=== PATIENT | female | born 1995 | race Caucasian/White ===

== ENCOUNTER 2018-02-16 09:28 | Emergency (ER) | payer OTHER, SELFPAY ==
[2018-02-16 09:28] VITALS: BP 125/63; PULSE 82; RESP 16; TEMP 36.9; O2SAT 99; BMI 32.5
--- NOTE | 2018-02-16 09:40 | CT_ITS ---
STUDY: CT ABDOMEN AND PELVIS WITHOUT CONTRAST REASON FOR EXAM: Female, 23 years old. Lower abdominal and pelvic pain since last night. RADIATION DOSAGE (If Supplied By Facility): CTDIvol = ( 12.97 ) mGy, DLP = ( 657.66 ) mGycm TECHNIQUE: Transaxial images were obtained from the dome of the diaphragm to the symphysis pubis without oral contrast, and without intravenous contrast. Sagittal and coronal images were reconstructed. Individualized dose optimization techniques were used for this CT. COMPARISON: None. FINDINGS: Minimal degree of increased markings at the lung bases suggestive of atelectasis. The visualized portions of the heart are within normal limits. There is a questionable 1.4 cm nodule in the lateral inferior aspect of the right breast. 6 mm nodule in the subcutaneous tissues of the right lateral inferior chest. Normal liver. Minimal amount of free fluid in the right hepatorenal space. Normal gallbladder and extrahepatic biliary system. There is mild splenomegaly. There is evidence of a small amount of the perisplenic fluid. If the patient has a history of trauma, perisplenic hematoma should be ruled out. Normal pancreas. Normal bilateral adrenal glands. Normal right kidney. Normal left kidney. Normal visualized stomach. Findings suggestive of a thickening of the terminal ileum with the edematous changes. There is no evidence of bowel obstruction. Increased markings in the peritoneal fat in the right upper quadrant adjacent to the hepatic flexure. This is a nonspecific finding. There are surgical clips in the region of the appendix consistent with a prior appendectomy. Normal abdominal aorta. Normal inferior vena cava. There is borderline retroperitoneal lymphadenopathy with enlarged nodes no greater than 10mm in the short axis diameter. Normal urinary bladder. There is a 4 cm x 3.8 cm cyst in the right adnexa. This also evidence of a 2.1 cm x 2.6 cm low density cystic nodule in the left adnexa. Normal abdominal wall. Normal osseous structures. CT/Abdomen/Pelvis without Cont IMPRESSION: Right ovarian cyst measuring 4 cm x 3.8 cm. 2.1 cm x 2.6 cm cyst in the left adnexa. Thickening of the terminal ileum with the findings suggestive of a mural thickening and edematous changes with mild degree of increased markings in the fat. Small amount of fluid is seen in the hepatorenal space. Mild splenomegaly. Perisplenic fluid possible perisplenic hematoma. Correlation with pelvic ultrasound is recommended. Electronically Signed: Tito Moe MD at 11:39 EDT Tel [phone], Service support ,
[2018-02-16 10:12] LABS: Absolute Lymphocyte Count 0.76 X10^3/ul (0.83-4.51); Basophil# 0.01 X10^3/uL; Basophil% 0.1 % (0-1); Eosinophil# 0.03 X10^3/uL; Eosinophils% 0.3 % (0-5); Hematocrit 37.2 % (37-47); Hemoglobin 12.3 g/dl (12.0-15.0); Lymphocyte # 0.76 X10^3/ul (4.0); Lymphocyte % 7.4 % (19-41); Mean Corp Hgb Conc 33.1 g/gl (32-36); Mean Corpuscular Hgb 28.1 pg (27.0-32.0); Mean Corpuscular Volume 85.1 fL (81-99); Mean Platelet Vol. 10.3 fl (6.2-12.0); Monocyte# 0.51 X10^3/uL; Neutrophil # 8.96 X10^3/uL (2.7-7.7); Platelet Count 268 K/mm3 (150-450); RBC Distribution Width CV 12.8 % (11.6-14.6); RBC Distribution Width SD 39.7 fl (35.1-43.9); Red Blood Count 4.37 M/mm3 (4.2-5.4); White Blood Count 10.3 K/mm3 (4.4-11.0)
[2018-02-16 10:14] LABS: POSITIVE COUNT NO; POSITIVE DIFFERENTIAL NO; POSITIVE MORPHOLOGY NO
[2018-02-16 10:26] LABS: AST(SGOT) 28 U/L (15-37); Alanine Aminotransfer ALT/SGPT 28 U/L (13-56); Albumin, Serum 3.8 g/dL (3.2-5.0); Alkaline Phosphatase 57 U/L (45-117); Anion Gap 7 (5-15); BUN 10 mg/dL (7-18); Bilirubin, Direct 0.08 mg/dL (0.00-0.30); Calcium,Total 8.5 mg/dL (8.5-10.1); Chloride 107 mmol/L (98-107); Creatinine, Serum 0.91 mg/dL (0.55-1.02); EST Glomerular Filtration Rate 81 mL/min (>60); Est Glom Filt Rate - Afr Amer 98 mL/min (>60); Estimated Creatinine Clearance 89.24 ml/min; Globulin 3.9 g/dL (2.2-4.2); Glucose 113 mg/dL (74-106); Lipase 82 U/L (73-393); Potassium 4.9 mmol/L (3.5-5.1); Protein, Total 7.7 g/dL (6.4-8.2); Sodium Level 138 mmol/L (136-145)
[2018-02-16 10:28] LABS: Pregnancy, Serum, hCG Quali. NEGATIVE Negative (0-9 Nonpreg)
[2018-02-16 10:51] LABS: Red Blood Cells-Urine 0 SEEN /hpf (0-5)
[2018-02-16 11:08] LABS: Color, Urine Yellow (Yellow); Glucose, Dipstick Normal (Normal); Ketone-Dipstick 5 mg/dl (Negative); Leukocyte Esterase-Dipstick 25 /ul (Negative); Nitrite-Dipstick Negative (Negative); Occult Blood-Urine Negative /ul (Negative); Protein-Dipstick 30 mg/dl (Negative); Urine Bilirubin Dipstick Negative (Negative); Urine Clarity Sl. Cloudy (Clear); Urine Urobilinogen 1 mg/dl (Normal)
[2018-02-16 11:21] LABS: Bacteria 1+ /hpf (None Seen); Mucous, Urine 1+ /hpf (<or=2+); Squamous Epithelial Cells - UA 5-10 SEEN /hpf (5-10); White Blood Cells 0-5 SEEN /hpf (0-5)
--- NOTE | 2018-02-16 11:38 | US_ITS ---
STUDY: ULTRASOUND OF THE FEMALE PELVIS - COMPLETE REASON FOR EXAM: Female, 23 years old. 2 with a history of vaginal pain and abdominal pain. Negative brain CT as. LMP: December 16, 2017. TECHNIQUE: Transabdominal and Transvaginal. The transvaginal examination was obtained for better assessment of the pelvis. TECHNICAL QUALITY: Adequate. COMPARISON: Comparison is made with prior CT scan of the abdomen and pelvis done earlier today. FINDINGS: The uterus is anteverted and is in a midline position. The uterus measures 7.4 cm x 4.2 cm x 3.4 cm. Normal uterine cervix. The endometrium measures 10 mm in thickness, and is hyperechoic. There is no demonstrated endometrial mass. There is no demonstrated myometrial mass. I.U.D. - The patient does not have an I.U.D. The right ovary is visualized. The right ovary is enlarged and measures 6 cm x 5.5 cm x 3.7 cm. There is a 2.6 cm x 3.4 cm x 2.1 cm cyst within it. There is no visualized right adnexal mass or complex lesion. There is normal arterial and normal venous vascularity. The left ovary is visualized. The left ovary measures 4.7 cm x 3.7 sided by 2.1 cm. There is a dominant follicle within the ovary measuring 1.2 cm x 1.7 cm x 0.9 cm. There is no visualized left adnexal mass or complex lesion. There is normal arterial and normal venous vascularity. Blood flow is seen in both ovaries. Large amount of echogenic free fluid is seen in the pelvis. The differential diagnosis to consider should include either pelvic inflammatory disease versus blood in the pelvis. US/Transvaginal Non- IMPRESSION: Bilateral ovarian cysts more pronounced on the right side. Normal arterial and venous flow of both ovaries. Large amount of echogenic fluid is seen in the pelvis. This may represent either pelvic inflammatory disease or blood within the pelvis. Clinical correlation is recommended. Electronically Signed: Tito Moe MD at 13:06 EDT Tel [phone], Service support ,
[2018-02-16] MEDS: Acetaminophen 325 MG Tablet 650 MG PO (13:01)
[2018-02-16 13:12] VITALS: BP 131/63; PULSE 84; RESP 18; O2SAT 99
[2018-02-16 15:21] LABS: Hematocrit 35.3 % (37-47); Hemoglobin 11.7 g/dl (12.0-15.0)
--- NOTE | 2018-02-16 15:33 | ED.VISSUMM ---
- ER Visit Summary Date of Service: 02/16/18 Chief Complaint: Pelvic pain History of Present Illness: The patient is a 23 F presenting with bilateral lower abdominal/pelvic pain that started suddenly at 10 PM last night during sexual intercourse. It was fairly sudden and severe at onset. She went to an outside hospital and had a negative urinalysis. The pain has been gradually improving since then but this morning she noticed slight upper abdominal pain as well that was not present last night. She denies vaginal bleeding or discharge but does state that the sexual intercourse was somewhat painful initially. She denies previous similar symptoms. Denies chance of . Denies known history of ovarian cysts or any other abdominal issues. Current severity of her pain is mild. Physical Examination: Vitals are within normal limits. She is not in significant distress. Her abdomen is soft without peritoneal signs. No flank percussion tenderness. No rash. A female nurse was present in the room and verbal informed consent was obtained for pelvic examination. Her cervix is closed. There is no discharge. No cervical motion tenderness or evidence of cervicitis noted cultures were sent. No adnexal fullness but there is slight tenderness bilaterally. Test Results: CBC revealed a hemoglobin of 12.3. Other labs are all within normal limits including liver function and lipase. Chemistries unremarkable. HCG negative. Urine does not appear infected. CT with IV contrast revealed fluid in the hepatorenal space and around the spleen. She has no history of trauma and does not recall any trauma at all over the past few months. There is evidence of ovarian cyst bilaterally and the fluid in the pelvis. I subsequently ordered a transvaginal ultrasound and there are bilateral ovarian cysts and either fluid or blood noted in the pelvis Emergency Department Course and Treatment: She had fairly sudden onset pain and has evidence of ovarian cyst on ultrasound with either blood or fluid in the pelvis. The differential diagnosis includes a ruptured ovarian cyst versus a hemorrhagic ovarian cyst. Her hemoglobin is normal and her pain started at 10 PM last night, which does argue somewhat against a hemorrhagic cyst. She had a few other abnormalities that I cannot fully explain on her CT scan including thickening of the terminal ileum and possible blood around the spleen/splenic hematoma. I discussed these at length with her, her , and her parents discussing the need for close follow-up to rule out other pathology. Her pain improved markedly here in her abdomen is completely soft and nontender on reexamination. I repeated a hemoglobin approximately 5 hours after the first 1 here and it is 11.7 but she did receive a small amount of fluid. If she had active significant bleeding, I would expect a more significant drop. I discussed these findings with Dr. Pauly López, with whom the patient is already established. I discussed the findings on the CT scan and the ultrasound with her as well as the laboratory results and her physical examination findings. She feels strongly that this is a ruptured ovarian cyst and that is what is causing the fluid in hepatorenal space and around her spleen. She believes that it is very unlikely that this is a hemorrhagic cyst since her hemoglobin is still 11.7 after this much time passing. Additionally, the patient is feeling much better and has a completely soft abdomen with no evidence of peritoneal findings. She feels comfortable with the patient being discharged home and seeing her in the office early next week. She did asked that I give her a short course of pain medication. I spoke at length with the patient's , her mother, and her father about the importance of coming back to the emergency department if she is any worse so that we can repeat her labs and possibly imaging to make sure that this is not a hemorrhagic cyst. I asked her to come back tomorrow morning if she has any concerns at all, or sooner if her pain increases or if she feels lightheaded, weak, or feels like her abdomen is becoming more distended because I cannot say with absolute certainty that this is not a hemorrhagic cyst. She understands this and her family will be with her watching her closely. She was discharged in stable condition. Treatment Plan: Follow up closely with Dr. López Disposition: Home stable condition Impression: Initial encounter pelvic pain, ruptured ovarian cyst, free fluid in the pelvis, incidental CT findings This note was generated with [employer] software. It may contain incorrect words, spelling, and punctuation that were not noted in review of the chart prior to signing ED Disposition - Plan for ED Patient: Disposition: Home or Assisted Living Chief Complaint: Abd Pain Instructions: ED Cyst Ovarian Prescriptions: Ondansetron HCl [Zofran] 4 mg PO Q6H PRN PRN 3 Days #10 tablet PRN Reason: Pain Oxycodone HCl/Acetaminophen [Percocet 5/325] 1 tablet PO Q6H PRN PRN 3 Days #12 tablet PRN Reason: Pain Referrals: Pauly López MD [STAFF PHYSICIAN] - As soon as possible
[2018-02-16 15:54] VITALS: BP 134/65; PULSE 93; RESP 18; O2SAT 96
== END 2018-02-16 15:55 | disposition home or self-care (01) ==
PROVIDERS: Emergency Provider Emergency Medicine
DX: N83.201 Unspecified ovarian cyst, right side (principal); R10.2 Pelvic and perineal pain
CPT/HCPCS: 74176; 76830; 80048; 80076; 81001; 83690; 84703; 85014; 85018; 85025; 87081; 87110; 87140; 87210; 99285; J7030; A4216

== ENCOUNTER → 2018-02-19 13:59 | Outpatient (CLI) | payer OTHER, SELFPAY ==
[2018-02-19 14:52] LABS: Absolute Lymphocyte Count 1.16 X10^3/ul (0.83-4.51); Absolute Neutrophil Count 4.4 X10^3/uL (2.0-7.7); Basophil# 0.02 X10^3/uL; Basophil% 0.3 % (0-1); Eosinophil# 0.16 X10^3/uL; Eosinophils% 2.6 % (0-5); Hematocrit 33.6 % (37-47); Hemoglobin 11.3 g/dl (12.0-15.0); Lymphocyte # 1.16 X10^3/ul (4.0); Lymphocyte % 18.6 % (19-41); Mean Corp Hgb Conc 33.6 g/gl (32-36); Mean Corpuscular Hgb 28.7 pg (27.0-32.0); Mean Corpuscular Volume 85.3 fL (81-99); Mean Platelet Vol. 10.5 fl (6.2-12.0); Neutrophil # 4.35 X10^3/uL (2.7-7.7); POSITIVE COUNT NO; POSITIVE DIFFERENTIAL NO; POSITIVE MORPHOLOGY NO; Platelet Count 242 K/mm3 (150-450); RBC Distribution Width CV 12.4 % (11.6-14.6); RBC Distribution Width SD 37.4 fl (35.1-43.9); Red Blood Count 3.94 M/mm3 (4.2-5.4); White Blood Count 6.2 K/mm3 (4.4-11.0)
[2018-02-22 03:07] LABS: DHEA Sulfate 359.1 ug/dL (110.0-431.7)
[2018-02-23 08:16] LABS: Testosterone Free 0.9 pg/mL (0.0-4.2)
== END ==
PROVIDERS: Visit Provider Obstetrics & Gynecology
DX: N92.6 Irregular menstruation, unspecified (principal); N83.201 Unspecified ovarian cyst, right side; N83.202 Unspecified ovarian cyst, left side
CPT/HCPCS: 36415; 82627; 84402; 85025; 82626

== ENCOUNTER → 2018-03-23 13:28 | Outpatient (CLI) | payer OTHER, SELFPAY ==
--- NOTE | 2018-03-23 13:30 | BI_ITS ---
MAMMOGRAPHY - BILATERAL DIAGNOSTIC REASON FOR EXAM: Female, 23 years old. Nodular density seen on a CAT scan. PERTINENT HISTORY: Non-contributory. TECHNIQUE: Digital bilateral breast armin (3D mammographic acquisition) in the CC and MLO projections. 2-D mediolateral oblique (MLO) and craniocaudad (CC) views of both breasts were obtained. CAD: Full Field Digital Mammography with Computer Added Detection was performed. COMPARISON: None. Baseline examination. FINDINGS: Breast Composition: The breasts are heterogeneously dense, which may obscure small masses. There is a 1.5 cm x 1.7 cm well-defined nodular density in the upper lateral aspect of the right breast. Correlation with ultrasound is recommended. No other significant abnormalities are identified. BI/DIAG MAMM W/CAD, BILAT IMPRESSION: 1.5 cm x 1.7 cm well-defined nodular density in the upper outer aspect of the right breast as described. Correlation with ultrasound is recommended. ASSESSMENT CATEGORY: BIRADS Category 0: Incomplete. Need additional imaging evaluation. A letter regarding these results will be sent to the patient by the facility within 30 days. Approximately 10% of breast cancers are not detected by mammography. A normal mammogram should not delay biopsy of a clinically suspicious abnormality. Electronically Signed: Tito Moe MD at 15:14 EDT Tel [phone], Service support ,
--- NOTE | 2018-03-23 13:30 | US_ITS ---
STUDY: ULTRASOUND BREAST - RIGHT REASON FOR EXAM: Female, 23 years old. Right breast nodule. TECHNIQUE: Axial and longitudinal images of the RIGHT breast were performed with a high resolution ultrasound transducer. COMPARISON: Comparison is made with prior mammogram done earlier today. FINDINGS: RIGHT Breast: There is a lesion in the upper Outer quadrant. The lesion measures 1.7 cm x 1.0 cm x 0.7 cm in size. Clock notation: 10 o'clock position. Distance from nipple: 3.0 cm. Posterior Enhancement: None Posterior Shadowing: None Margins: Well-defined Echogenicity: Hypoechoic. Compression effect on Shape: None US/Breast Limited Unilateral IMPRESSION: 1.7 cm x 1 cm x 0.7 cm well-defined hypoechoic solid nodule at the 10:00 position breast at 3 cm from the nipple. This corresponds to the mammographic findings. This most likely represents a fibroadenoma. A biopsy is recommended for further evaluation. ASSESSMENT CATEGORY: BIRADS Category 4: Suspicious - Biopsy Should Be Considered. A letter regarding these results will be sent to the patient by the facility within 30 days. Electronically Signed: Tito Moe MD at 15:16 EDT Tel [phone], Service support ,
== END ==
PROVIDERS: Referring Provider Obstetrics & Gynecology; Visit Provider Obstetrics & Gynecology
DX: N63.10 Unspecified lump in the right breast, unspecified quadrant (principal)
CPT/HCPCS: 76642; 77062; 77066; G0279

== ENCOUNTER → 2018-04-13 16:47 | Outpatient (CLI) | payer OTHER, SELFPAY ==
--- NOTE | 2018-04-13 | BRBX_PTH ---
PATIENT: CHANTELLE JACKSON LOC: [facility] U#:[id number] AGE/SX: 30/F ROOM: RE04/13/[address]: Dr. Prasad Staley MD : 1995 BED: DIS: SPEC #: [id number] RECD: 04/13/18 16:38 STATUS: HEIDI DINORA #: [id number] [place]: 04/13/18 00:[address]: Prasad Staley DEPT: SURGICAL PATHOLOGY RECD BY: Shmuel Freeman ENTERED: 04/16/18 09:50 SP TYPE: BREAST BX OTHR DR: No Primary Care Phys Tissues: Right breast, NOS Procedures: Surgery Specimen Level IV HEADER OPERATION: Right breast biopsy PRE-OP DIAGNOSIS: Right breast mass TISSUE SUBMITTED: Right breast tissue ISCHEMIC TIME: 1 second FIXATION TIME: 77 hours MICROSCOPIC DIAGNOSIS Right breast mass, core biopsy: Fibroadenoma. Negative for atypia or malignancy. SJ:yao 04/17/18 MICROSCOPIC DESCRIPTION Slides are reviewed. GROSS DESCRIPTION Received in fixative is one container labeled with the patient's name and designated right breast. The specimen consists of multiple elongated fragments of miller-yellow fibroadipose tissue that in aggregate measure 2.5 x 1 x 0.1 cm. The entire specimen is submitted in one cassette. / SJ:rg 04/16/18 TC:1 CPT: 67191
[2018-04-13 13:22] VITALS: BMI 31.6
== END ==
PROVIDERS: Referring Provider Surgery; Visit Provider Surgery
DX: N63.10 Unspecified lump in the right breast, unspecified quadrant (principal)
CPT/HCPCS: 88305

== ENCOUNTER → 2019-06-26 08:25 | Outpatient (CLI) | payer BC, SELFPAY ==
[2019-06-26 08:12] VITALS: BMI 31.6
[2019-06-26 16:43] LABS: Xtra Tube EP Lab EXTRA TUBE
== END ==
PROVIDERS: Referring Provider Obstetrics & Gynecology; Visit Provider Obstetrics & Gynecology
DX: Z34.90 Encounter for supervision of normal pregnancy, unspecified, unspecified trimester (principal)
CPT/HCPCS: 36415; 86850; 86900; 86901

== ENCOUNTER → 2019-07-08 13:51 | Outpatient (CLI) | payer BC, SELFPAY ==
[2019-07-08 11:43] VITALS: BMI 31.6
[2019-07-08 15:19] LABS: Amphetamine Urine VISTA NEGATIVE (<1000 ng/mL); Barbiturate Urine VISTA NEGATIVE (< 200 ng/mL); Benzodiazepine Urine VISTA NEGATIVE (< 200 ng/mL); Cocaine Urine VISTA NEGATIVE (< 300 ng/mL); Ecstacy Urine VISTA NEGATIVE (< 500 ng/mL); Methadone Urine VISTA NEGATIVE (< 300 ng/mL); PCP Urine VISTA NEGATIVE (< 25 ng/mL); THC Urine VISTA NEGATIVE (< 50 ng/mL); Vista UDS pH Range 6
[2019-07-08 15:58] LABS: Chlamydia Trachomatis by PCR Negative (Negative); Neisserai gonorrhoeae by PCR Negative (Negative); Probe Check PASS; Sample Adequacy Control PASS; Specimen Processing Control PASS
[2019-07-11 15:44] LABS: HPV Reflexed? NOT INDICATED
== END ==
PROVIDERS: Referring Provider Obstetrics & Gynecology; Visit Provider Obstetrics & Gynecology
DX: Z12.4 Encounter for screening for malignant neoplasm of cervix (principal); Z34.90 Encounter for supervision of normal pregnancy, unspecified, unspecified trimester; N92.6 Irregular menstruation, unspecified
CPT/HCPCS: 80307; 87086; 87088; 87491; 87591; 88175; G0145

== ENCOUNTER → 2019-07-22 09:49 | Outpatient (CLI) | payer BC, SELFPAY ==
[2019-07-08 11:43] VITALS: BMI 31.6
[2019-07-22 10:32] LABS: Absolute Lymphocyte Count 1.29 X10^3/uL (0.83-4.51); Absolute Neutrophil Count 6.1 X10^3/uL (2.0-7.7); Basophil# 0.02 X10^3/uL; Basophil% 0.2 % (0-1); Eosinophil# 0.15 X10^3/uL; Eosinophils% 1.8 % (0-5); Hematocrit 40.6 % (37-47); Hemoglobin 13.6 g/dL (12.0-15.0); Lymphocyte # 1.29 X10^3/ul (4.0); Lymphocyte % 15.8 % (19-41); Mean Corp Hgb Conc 33.5 g/dL (32-36); Mean Corpuscular Hgb 28.6 pg (27.0-32.0); Mean Corpuscular Volume 85.3 fL (81-99); Mean Platelet Vol. 10.2 fl (6.2-12.0); Monocyte# 0.55 X10^3/uL; Monocyte% 6.7 % (0-10); NRBC Flagged by Analyzer 0 % (0-5); Neutrophil # 6.12 X10^3/uL (2.7-7.7); Platelet Count 249 K/mm3 (150-450); RBC Distribution Width CV 12.1 % (11.6-14.6); RBC Distribution Width SD 37.4 fl (35.1-43.9); Red Blood Count 4.76 M/mm3 (4.2-5.4); White Blood Count 8.2 K/mm3 (4.4-11.0)
[2019-07-22 11:02] LABS: NATERA MAILED SPECIMEN
[2019-07-22 12:01] LABS: HIV - WCH Non-Reactive (Nonreactive); Hepatitis B Surface Antigen Non-Reactive (Nonreactive); Hepatitis C Antibody Non-Reactive (Nonreactive); Rubella IgG > 500.0 IU/mL
[2019-07-25 01:05] LABS: Rapid Plasmin Reagin (RPR) NONREACTIVE (NONREACTIVE)
== END ==
PROVIDERS: Referring Provider Obstetrics & Gynecology; Visit Provider Obstetrics & Gynecology
DX: Z34.81 Encounter for supervision of other normal pregnancy, first trimester (principal); Z31.430 Encounter of female for testing for genetic disease carrier status for procreative management
CPT/HCPCS: 36415; 85025; 86592; 86703; 86762; 86803; 86850; 86900; 86901; 87340

== ENCOUNTER → 2019-07-29 13:25 | Outpatient (CLI) | payer BC, SELFPAY ==
[2019-07-08 11:43] VITALS: BMI 31.6
[2019-07-29] MEDS: Dextrose 5%-Lactated Ringers 1,000 ML 999 ML IV (14:00)
[2019-07-29 14:02] VITALS: BP 129/75; PULSE 86; RESP 16; TEMP 36; O2SAT 100; BMI 31.1
[2019-07-29] MEDS: Ondansetron 4 MG/2 ML Vial IV (14:09)
== END ==
PROVIDERS: Referring Provider Obstetrics & Gynecology; Visit Provider Obstetrics & Gynecology
DX: E86.0 Dehydration (principal)
CPT/HCPCS: 96361; 96374; 96375; A4216; J2405

== ENCOUNTER → 2019-11-15 11:17 | Outpatient (CLI) | payer BC, SELFPAY ==
[2019-11-15 10:57] VITALS: BMI 31.1
[2019-11-15 12:07] LABS: Absolute Lymphocyte Count 1.08 X10^3/uL (0.83-4.51); Absolute Neutrophil Count 7.4 X10^3/uL (2.0-7.7); Basophil# 0.03 X10^3/uL; Basophil% 0.3 % (0-1); Eosinophils% 1.1 % (0-5); Hematocrit 34.8 % (37-47); Hemoglobin 11.7 g/dL (12.0-15.0); Lymphocyte # 1.08 X10^3/ul (4.0); Lymphocyte % 11.6 % (19-41); Mean Corp Hgb Conc 33.6 g/dL (32-36); Mean Corpuscular Hgb 29.8 pg (27.0-32.0); Mean Corpuscular Volume 88.8 fL (81-99); Mean Platelet Vol. 11.2 fl (6.2-12.0); Monocyte# 0.59 X10^3/uL; Monocyte% 6.3 % (0-10); NRBC Flagged by Analyzer 0 % (0-5); Neutrophil # 7.44 X10^3/uL (2.7-7.7); Neutrophil % 79.5 % (47-70); Platelet Count 218 K/mm3 (150-450); RBC Distribution Width CV 12.9 % (11.6-14.6); RBC Distribution Width SD 41.8 fl (35.1-43.9); Red Blood Count 3.92 M/mm3 (4.2-5.4); White Blood Count 9.4 K/mm3 (4.4-11.0)
[2019-11-15 12:15] LABS: Glucose Challenge Gest 1H 50g 88 mg/dL (70-140)
== END ==
PROVIDERS: Referring Provider Obstetrics & Gynecology; Visit Provider Obstetrics & Gynecology
DX: Z34.02 Encounter for supervision of normal first pregnancy, second trimester (principal)
CPT/HCPCS: 36415; 82950; 85025

== ENCOUNTER → 2019-12-10 11:13 | Outpatient (CLI) | payer BC, SELFPAY ==
[2019-12-10 10:39] VITALS: BMI 31.1
[2019-12-10 11:26] LABS: Absolute Neutrophil Count 7.7 X10^3/uL (2.0-7.7); Basophil# 0.05 X10^3/uL; Basophil% 0.5 % (0-1); Eosinophil# 0.09 X10^3/uL; Eosinophils% 0.9 % (0-5); Hematocrit 36.1 % (37-47); Lymphocyte % 11.2 % (19-41); Mean Corp Hgb Conc 33.2 g/dL (32-36); Mean Corpuscular Hgb 29.7 pg (27.0-32.0); Mean Corpuscular Volume 89.4 fL (81-99); Mean Platelet Vol. 10.9 fl (6.2-12.0); Monocyte% 7.1 % (0-10); NRBC Flagged by Analyzer 0 % (0-5); Neutrophil # 7.71 X10^3/uL (2.7-7.7); Neutrophil % 78.2 % (47-70); Platelet Count 211 K/mm3 (150-450); RBC Distribution Width CV 12.8 % (11.6-14.6); RBC Distribution Width SD 41.5 fl (35.1-43.9); Red Blood Count 4.04 M/mm3 (4.2-5.4); White Blood Count 9.9 K/mm3 (4.4-11.0)
[2019-12-10 11:48] LABS: ALB/GLOB Ratio 0.6 RATIO (0.9-2.4); AST(SGOT) 13 U/L (15-37); Alanine Aminotransfer ALT/SGPT 22 U/L (13-56); Albumin, Serum 2.6 g/dL (3.2-5.0); Alkaline Phosphatase 78 U/L (45-117); Anion Gap 7 (5-15); BUN 5 mg/dL (7-18); BUN/Creat Ratio 8.1 RATIO (10-20); Calcium,Total 8.1 mg/dL (8.5-10.1); Chloride 108 mmol/L (98-107); Creatinine, Serum 0.62 mg/dL (0.55-1.02); EST Glomerular Filtration Rate 124 mL/min (>60); Est Glom Filt Rate - Afr Amer 150 mL/min (>60); Glucose 107 mg/dL (74-106); Potassium 3.8 mmol/L (3.5-5.1); Protein, Total 6.6 g/dL (6.4-8.2); Sodium Level 137 mmol/L (136-145)
--- NOTE | 2019-12-10 16:09 | US_ITS ---
STUDY: SECOND AND THIRD TRIMESTER OBSTETRICAL ULTRASOUND REASON FOR EXAM: Female, 24 years old ABD PAIN- 5 HOURS STRAIGHT TODAY LMP: TECHNIQUE: Transabdominal TECHNICAL QUALITY: Adequate. PRIOR ULTRASOUND: None. FINDINGS: There is a single intrauterine fetus. The fetus is in a cephalic presentation. There is demonstrated cardiac activity with a heart rate of 129 bpm. There is a normal amniotic fluid volume. The largest amniotic fluid pocket measures 5.1 x 4.1 cm. The amniotic fluid index (STEPHON) is 10.9 cm. The placenta is posterior and fundal There are Grade 2 placental changes. The cervix measures 3.5 cm in length. The bilateral adnexal regions are normal. BIOMETRY: BPD: 8.19 cm: 33 weeks, 0 days HC: 30.49 cm: 34 weeks, 0 days AC: 26.8 cm: 31 weeks, 0 days FL: 6.02 cm: 31 weeks, 3 days CI: 0.79 FL/BPD: 0.74 FL/HC: FL/AC: 0.22 HC/AC: 1.14 age by current US: 32 weeks, 3 days. COLIN by current US: February 01, 2020. Estimated weight: 1777 grams, +/- 259 grams, 45 %. age by prior US: weeks, days. COLIN by prior US: . Age by LMP: 31 weeks, 2 days. COLIN by LMP: February 09, 2020. ANATOMY: Not studied at this time US/OB Limited With Biometrics IMPRESSION: Viable intrauterine gestation approximately 32-33 weeks gestational age. No significant abnormalities. Electronically Signed: Timmy Tejeda MD at 17:12 EDT , Service support ,
[2019-12-10 16:31] LABS: Protein, Urine (Random) 29.4 mg/dL (<11.9); Protein:Creat Ratio 232 mg/g CRE (0-200)
== END ==
PROVIDERS: Referring Provider Nurse Practitioner Women's Health; Visit Provider Nurse Practitioner Women's Health
DX: N39.0 Urinary tract infection, site not specified (principal); O26.899 Other specified pregnancy related conditions, unspecified trimester; R10.9 Unspecified abdominal pain
CPT/HCPCS: 36415; 76816; 80053; 82570; 84156; 85025; 87086; 87088

== ENCOUNTER → 2020-01-13 16:58 | Outpatient (CLI) | payer BC, SELFPAY ==
[2020-01-13 11:04] VITALS: BMI 33.9
== END ==
PROVIDERS: Referring Provider Obstetrics & Gynecology; Visit Provider Obstetrics & Gynecology
DX: Z34.90 Encounter for supervision of normal pregnancy, unspecified, unspecified trimester (principal)
CPT/HCPCS: 87081

== ENCOUNTER → 2020-02-04 11:25 | Outpatient (CLI) | payer BC, SELFPAY ==
[2020-01-27 10:53] VITALS: BMI 31.1
--- NOTE | 2020-02-04 11:29 | US_ITS ---
STUDY: SECOND AND THIRD TRIMESTER OBSTETRICAL ULTRASOUND REASON FOR EXAM: Female, 25 years old growth LMP: 05/05/2019. TECHNIQUE: Transabdominal TECHNICAL QUALITY: Adequate. PRIOR ULTRASOUND: Comparison is made with prior examination dated 12/10/2019. FINDINGS: There is a single intrauterine fetus. The fetus is in a cephalic presentation. There is demonstrated cardiac activity with a heart rate of 138 bpm. There is a normal amniotic fluid volume. The largest amniotic fluid pocket measures 3.5 cm. The amniotic fluid index (STEPHON) is 11.3 cm. The placenta is There are Grade 3 placental changes. The cervix measurement was not obtained due to the head positioning.. The adnexal regions are not visualized. BIOMETRY: BPD: 9.3 cm: 38 weeks, 0 days HC: 34.3 cm: 39 weeks, 5 days AC: 36.9 cm: 40 weeks, 6 days FL: 7.44 cm: 38 weeks, 1 days CI: 83% FL/BPD: 80% FL/HC: FL/AC: 20% HC/AC: 0.93 age by current US: 39 weeks, 2 days. COLIN by current US: 02/09/2020. Estimated weight: 3872 grams, +/- 565 grams, 81 %. age by prior US: 40 weeks, 3 days. COLIN by prior US: 02/01/2020. Age by LMP: 39 weeks, 2 days. COLIN by LMP: 02/09/2020. US/OB Limited With Biometrics IMPRESSION: Single live intrauterine gestation with a mean gestational age of 40 weeks and 3 days. The measurements obtained today fall within the normal expected range. Electronically Signed: Tito Moe, at 13:23 EDT , Service support ,
== END ==
PROVIDERS: Referring Provider Obstetrics & Gynecology; Visit Provider Obstetrics & Gynecology
DX: O26.843 Uterine size-date discrepancy, third trimester (principal); Z3A.40 40 weeks gestation of pregnancy
CPT/HCPCS: 76816

== ENCOUNTER → 2020-02-05 10:56 | Outpatient (CLI) | payer BC, SELFPAY ==
[2020-01-27 10:53] VITALS: BMI 31.1
== END ==
PROVIDERS: Referring Provider Obstetrics & Gynecology; Visit Provider Obstetrics & Gynecology
DX: Z11.59 Encounter for screening for other viral diseases (principal)
CPT/HCPCS: 87635; C9803; U0003

== ENCOUNTER 2020-02-14 19:00 | Inpatient (IN) | payer BC, SELFPAY ==
[2020-01-27 10:53] VITALS: BMI 31.1
[2020-02-14] VITALS (8 sets, daily range): BP systolic 112–118; BP diastolic 70–72; PULSE 88–97; TEMP 35.9–36.3; O2SAT 97–98; BMI 31.1; BMI 34.8
--- NOTE | 2020-02-14 19:46 | PCM.HPOB.BLA ---
- Problem List (1) Encounter for induction of labor Status: Acute (2) Family history of genetic disease Status: Acute Comment: FOB positive for two variants in the gene associated with Galactosemia; MOB neg for 14/14 diseases. (3) Family history of multiple sclerosis Status: Acute Comment: father and sister. She is having jitteriness is legs-getting opinion form their neurologist (4) Status: Acute Qualifiers: Comment: nipt carrier screening low risk. declines ntd screening. anatomy nl (5) Supervision of normal Status: Acute Qualifiers: Comment: PRR COLIN 02/09/20, boy Damir Ranjit History and Physical Date of Admission: 02/14/20 Intake Vital Signs 02/14/20 Height 5 ft 6 in 02/14/20 Weight: 219 lb 6 oz 02/14/20 BMI 35.4 02/14/20 BP 124/80 H Intake Visit Reasons: OB VISIT Radiological Defense Officer Required: No Is patient in pain?: No Allergies morphine Allergy (Verified 02/14/20 10:59) Hives Medications vitamin#30 30 mg iron-10 mg iron-folic acid 1 mg-omg3 capsule cap PO 06/26/19 [History Confirmed 02/14/20] promethazine 12.5 mg tablet 12.5 mg PO Q6H PRN #60 tab 07/24/19 [Rx Confirmed 02/14/20] ondansetron 4 mg disintegrating tablet See Rx Instructions .ROUTE .COMPLEX #60 tab 01/06/20 [Rx Confirmed 02/14/20] betamethasone dipropionate 0.05 % lotion 1 applic TOPICAL BID PRN #60 ml 01/16/20 [Rx Confirmed 02/14/20] Last Menstral Period: 05/05/19 Zika: Zika virus screening: Negative : No PFSH PFSH Medical History Abnormal ultrasound (Acute) Asthma (Acute) Surgical History H/O breast biopsy (Acute) History of appendectomy (Acute) Social History (Updated 02/14/20 @ 13:[address] Janell Acevedo MD) Smoking Status: Never smoker alcohol intake: never substance use type: does not use caffeine: Yes what type of physical activity do you participate in: none seatbelt use: always do you feel safe at home: Yes additional social history: Aminata Tsai Patient works at [employer] in [place] Pregancy History 1 Elective abortions Hx Para Spontaneous abortions Hx # Term Pregnancies Ectopic pregnancies Hx # Pregnancies Multiple births # of living children HPI OB VISIT : Details: CHANTELLE JACKSON is a 25 year old who presents for routine OB visit. OB Visit COLIN Calculator Estimated Delivery Date Method Current WG Current Estimate 02/09/20 LMP (Certain) 40w 5d Expected Delivery Route/Plan Labor Preferences- declined classes labor support person: Ranjit pain management options preferred: epidural cut cord/dad catch: no : yes PP control planned: NFP discussed possible routes of delivery and associated risks: discussed possible delivery modalities and possible indications for each including R/B/A of , VAVD, and CS. questions answered. special requests: denies Specific Issue/Plans flu vaccine: given tdap vaccine: given rhogam: na LARC form signed: yes movement and labor precautions reviewed. Problem list reviewed and updated with the most current plan of care details and appropriate orders placed. Relevant counseling for the gestational age provided. Continue routine care and follow up unless otherwise noted in visit notes/problem list details Initial Weight: 198 lb Date EGA Weight BP Urine Prot Glucose FHR FuHt Pres Dilation Effaced St Visit Note 08/09/19 13w 5d 199 lb (+16 oz) 104/76 Negative Negative 150 SM- no vb cramping 10/04/19 21w 5d 199 lb (+16 oz) 122/84 Negative Negative 145 sM_ no vb lof good fm no regular ctx 11/01/19 25w 5d 200 lb (+2 lb) 120/78 Negative Negative 149 25 MH-NO VB, LOF. Good FM. Sister and dad with MS:having symptoms for jitteriness, shakiness of legs. Will seek opionion from their specialist. 11/15/19 27w 5d 200 lb (+2 lb) 120/68 150 28 Sm- no vb lof good fm no regular ctx cbc gct tdap discussed CB classes and BF 12/02/19 30w 1d 200 lb (+2 lb) 128/76 Negative Negative 140 30 SM- no vb lof good fm nor egular ctx 12/10/19 31w 2d 208 lb 4 oz (+10 lb 4 oz) 140/80 Trace Negative 131 MH-work in for pain to right of umbilicus starting about 2 hours ago. Good FM. NO VB, LOF. UA negative. Upon exam:tender without mass just right of umbilicus. US planned today. MH-work in for pain to right of umbilicus starting about 2 hours ago. Good FM. NO VB, LOF. UA negative. Upon exam:tender without mass just right of umbilicus. US planned today. Pre E labs 12/30/19 34w 1d 206 lb (+8 lb) 122/68 Trace Negative 142 34 MH-doing well. No VB, LOF. Good FM. Some pain over tailbone/Dossi 01/13/20 36w 1d 210 lb 2 oz (+12 lb 2 oz) 110/82 Negative 1000 g/dL 140 36 Cephalic SM- no vb lof good fm no regular ctx. gbs today 01/16/20 36w 4d 214 lb 2 oz (+16 lb 2 oz) 120/70 Trace Negative 150 36 MH-work in itching rash abdomen; erythema, rash in striae. PUPPS. steroid cream Rx. Benadryl qhs. MH-work in itching rash abdomen; erythema, rash in striae. PUPPS. steroid cream Rx. Benadryl qhs. Good FM. NO VB, LOF 01/22/20 37w 3d 212 lb (+14 lb) 122/76 Negative Negative 150 37 Cephalic 0.5 40 -3 GP - still having discomfort from PUPPs. Offered PO steroids, but declines. Rec antihistamines and steroid cream. No LOF, VB, DFM, Ctx. 01/27/20 38w 1d 215 lb (+17 lb) 124/84 Negative Negative 145 38 Cephalic 0.5 Sm- no vb lof good fm no regular ctx order growth us 02/07/20 39w 5d 215 lb 8 oz (+17 lb 8 oz) 126/72 Trace Negative 140 40 Cephalic 1 50 -1 SM- no vb lof good fm no regular ctx 02/14/20 40w 5d 219 lb 6 oz (+21 lb 6 oz) 124/80 Trace Negative 140 41 Cephalic 1 50 -2 GP - no LOF, VB, DFM regular ctx. Discussed IOL tonight. ACOG First Trimester First Trimester: Discussed Diagnostics Diagnostics Diagnostics Glucose 1 Hr 50 gm 88 mg/dL (70-140) 11/15/19 Hgb 12.0 g/dL (12.0-15.0) 12/10/19 Hct 36.1 % (37-47) L 12/10/19 Details: HIV: Urine Culture: Sequential Screen: NIPT Screen: ROS Const Reports fatigue, Denies fever(s), Denies increased appetite, Denies weight gain Card Denies chest pain, Denies shortness of breath Resp Denies shortness of breath GI Denies constipation, Reports heartburn, Reports nausea, Reports vomiting Denies abnormal vaginal bleeding, Denies painful urination, Denies nipple discharge, Denies pelvic pain, Denies vaginal discharge, Denies vaginal odor, Denies vaginal itching Skin/Breast Reports breast pain, Reports breast swelling, Denies nipple discharge Psych Denies anxiety, Denies depression Endo Reports fatigue Exam Const General: cooperative, healthy appearing, comfortable, no acute distress, well developed, well groomed Nutritional Appearance: average body habitus, well nourished Orientation: alert, awake, oriented x3 [facility] Head: normal to inspection, normocephalic, atraumatic Eyes Pupils: PERRL, accommodation normal Resp Effort & Inspection: normal respiratory effort, able to speak in complete sentences, symmetric chest movement Cardio Rate: regular rate GI Palpation: soft, no guarding, no masses, nontender Skin General: no rashes or lesions noted, elasticity normal, turgor normal Neuro General: alert, awake, oriented x3 Cranial Nerves: CN's II-XI intact bilaterally, sense of smell intact, PERRL, accommodation normal, EOM intact bilaterally Speech: speech normal Gait: normal gait Psych Appearance: grossly normal, well kempt Mental Status: mental status grossly normal Mood: congruent mood Affect: normal affect Speech and Movement: speech and movement normal Attitude: cooperative Thought Process: normal Thought Content: normal Judgment: judgment good Results POC Urinalysis 2 Dip (Clinic) Office Urine Glucose Negative Last Edit by Mounika Perea on 02/14/20 11:15 Office Urine Protein Trace Last Edit by Mounika Perea on 02/14/20 11:15 Office Urine Protein previously reported as Negative Mounika Perea 02/14/20 11:15 Assessment & Plan Problems 1. Family history of multiple sclerosis Z82.0 father and sister. She is having jitteriness is legs-getting opinion form their neurologist 2. Family history of genetic disease Z84.89 FOB positive for two variants in the gene associated with Galactosemia; MOB neg for 14/14 diseases. 3. Supervision of normal Z34.90 PRR COLIN 02/09/20, boy Damir Ranjit 4. 40 weeks gestation of Z3A.40 nipt carrier screening low risk. declines ntd screening. anatomy nl Plan Patient for induction for maternal obesity and post dates tonight at 1900. Plan for rowley bulb with cytotec. Pain management: plans epidural. GBS negative. Blood type O+ Rubella immune Covid test negative Management of any complications: none Orders Orders: POC Urinalysis 2 Dip (Clinic) Today Coding Level of Care Code OB Routine Diagnoses Family history of multiple sclerosis Z82.0 Family history of genetic disease Z84.89 Supervision of normal Z34.90 40 weeks gestation of Z3A.40 ??Weeks of gestation: 40 weeks UPDATE- I have seen the patient and performed any clinically relevant updates to the history and physical exam. Janell Acevedo MD
[2020-02-14] MEDS: Lactated Ringers 1,000 ML 50 ML IV (20:10)
[2020-02-14 20:30] LABS: Absolute Lymphocyte Count 1.27 X10^3/uL (0.83-4.51); Absolute Neutrophil Count 9.5 X10^3/uL (2.0-7.7); Basophil# 0.06 X10^3/uL; Basophil% 0.5 % (0-1); Eosinophil# 0.11 X10^3/uL; Eosinophils% 0.9 % (0-5); Hematocrit 38.1 % (37-47); Hemoglobin 12.8 g/dL (12.0-15.0); Lymphocyte # 1.27 X10^3/ul (4.0); Lymphocyte % 10.5 % (19-41); Mean Corp Hgb Conc 33.6 g/dL (32-36); Mean Corpuscular Volume 86.4 fL (81-99); Mean Platelet Vol. 11.4 fl (6.2-12.0); Monocyte# 0.98 X10^3/uL; Monocyte% 8.1 % (0-10); NRBC Flagged by Analyzer 0 % (0-5); Neutrophil # 9.46 X10^3/uL (2.7-7.7); Neutrophil % 77.8 % (47-70); Platelet Count 222 K/mm3 (150-450); RBC Distribution Width CV 13.1 % (11.6-14.6); RBC Distribution Width SD 40.3 fl (35.1-43.9); Red Blood Count 4.41 M/mm3 (4.2-5.4); White Blood Count 12.2 K/mm3 (4.4-11.0)
[2020-02-14] MEDS: 0.9% Normal Saline Single 100 ML IV.SOLN. IY (20:41)
[2020-02-14] MEDS: miSOPROStol 25 MCG TABLET VAGINAL (20:46)
[2020-02-14] MEDS: 0.9% Saline Lock 10 ML Syringe IV ×3 (21:23→23:18)
[2020-02-14] MEDS: Ondansetron 4 MG/2 ML Vial IV (22:53)
[2020-02-14] MEDS: fentaNYL 100 MCG/2 ML Ampul IV (23:18)
[2020-02-15] VITALS (62 sets, daily range): BP systolic 89–130; BP diastolic 44–81; PULSE 82–109; TEMP 36.2–38.1; O2SAT 89–99
[2020-02-15] MEDS: miSOPROStol 25 MCG TABLET VAGINAL (01:10)
[2020-02-15] MEDS: fentaNYL 100 MCG/2 ML Ampul IV (01:34)
[2020-02-15] MEDS: 0.9% Saline Lock 10 ML Syringe IV ×4 (01:35→06:09)
[2020-02-15] MEDS: Ondansetron 4 MG/2 ML Vial IV ×3 (03:37→18:16)
[2020-02-15] MEDS: Oxytocin 30 units/NS 500 ml 30 UNITS/500 ML IV.SOLN IV (05:37)
[2020-02-15] MEDS: proCHLORPERazine 10 MG/2 ML Vial IV ×2 (06:09→19:21)
[2020-02-15] MEDS: Lactated Ringers 500 ML 999 ML IV ×3 (07:44→13:52)
[2020-02-15] MEDS: fentaNYL-bupivacaine (epidural) 100 ML BAG EPIDURAL ×3 (08:31→18:16)
[2020-02-15] MEDS: Lactated Ringers 1,000 ML 200 ML IV ×2 (13:44→19:40)
[2020-02-16] VITALS (36 sets, daily range): BP systolic 83–144; BP diastolic 46–77; PULSE 96–127; RESP 14–18; TEMP 36.1–39.4; O2SAT 80–100
[2020-02-16] MEDS: fentaNYL-bupivacaine (epidural) 100 ML BAG EPIDURAL ×2 (00:05→07:12)
[2020-02-16] MEDS: Lactated Ringers 1,000 ML 200 ML IV ×3 (00:37→12:24)
[2020-02-16] MEDS: Acetaminophen 325 MG Tablet PO ×3 (02:22→12:19)
[2020-02-16] MEDS: Ondansetron 4 MG/2 ML Vial IV (09:11)
[2020-02-16] MEDS: Sodium Citrate/Citric Acid 30 ML UDC PO (12:24)
[2020-02-16] MEDS: Lactated Ringers 500 ML 999 ML IV (12:43)
[2020-02-16] MEDS: Oxytocin 30 units/NS 500 ml 30 UNITS/500 ML IV.SOLN 167 UNITS IV (15:00)
--- NOTE | 2020-02-16 15:05 | PCM.OPRPT ---
Problem List (1) Encounter for induction of labor Status: Acute (2) Family history of genetic disease Status: Acute Comment: FOB positive for two variants in the gene associated with Galactosemia; MOB neg for 14/14 diseases. (3) Family history of multiple sclerosis Status: Acute Comment: father and sister. She is having jitteriness is legs-getting opinion form their neurologist (4) Status: Acute Qualifiers: Comment: nipt carrier screening low risk. declines ntd screening. anatomy nl (5) Supervision of normal Status: Acute Qualifiers: Comment: PRR COLIN 02/09/20, boy Damir Ranjit Delivery Classification: GIN Final COLIN: 02/09/20 Final COLIN Source: LMP Gestational age: 41 Weeks and 0 Days directional driller: Christine Palacios Type of Anesthesia:: Spinal Date of Procedure: 02/16/20 Pre-Operative Diagnosis: Induction of labor for postdates, intrapartum amniotic infection, failed forceps assisted vaginal delivery Post-Operative Diagnosis: Live male infant in OP presentation Indications: Failed forceps assisted vaginal delivery Indications for : Failed forceps extraction Description of Procedure: Patient is a 25-year-old G1, P0 at 41 weeks gestation who was admitted on 02/13 for induction of labor for postdates . She underwent induction with Fonseca bulb and Cytotec followed by Pitocin. After a prolonged labor course she made slow change to complete dilation. She pushed with excellent maternal effort for 3 hours. At this point she had had a 1 hour period of recurrent late decelerations with minimal variability with pushing. The head was at the +2 station. It was recommended to proceed with a forceps assisted vaginal delivery. The risks, benefits, indications, and alternatives to forceps assisted delivery were discussed with the patient including risks of facial or scalp lacerations or bruising, risk of intracranial hemorrhage, risk of cephalhematoma, and increased ulcerations. It was also discussed with the patient that given the fact that she had been pushing with excellent maternal effort and had made less progress than would be predicted, if there was no descent noted on the first contraction the recommendation would be made to proceed with a section. The perineum was prepped with a Betadine scrub. Kielland forceps were applied atraumatically without difficulty. No rotation was performed. 1 pool was attempted with 1 contraction. No descent was noted in spite of the fact that the patient was pushing with excellent effort and the forceps were noted to be applied correctly. The decision was therefore made to proceed with a primary section for failed forceps assisted vaginal delivery. The risks, benefits, indications, and alternatives to the were discussed with the patient including bleeding, infection, and visceral or vascular injury. The patient voiced understanding and agreed to proceed. The patient was taken to the operating room where her epidural was dosed for spinal anesthesia. Anesthesia level was tested and found to be adequate. She was prepped and draped in the dorsal prone position with a leftward tilt. A Pfannenstiel incision was then made with a scalpel and carried down to the level of the fascia with the scalpel. The fascial incision was extended laterally using Orta scissors. The superior edge of the fascia was grasped with Marcel clamps and the underlying rectus muscles were dissected off using the Orta scissors. This was repeated in a similar fashion on the inferior portion of the fascia. This muscles were in the midline and the peritoneum was entered bluntly. The peritoneal incision was extended using lateral traction. The lower uterine segment was identified and a low transverse incision was made on the uterus. The head was noted to be deeply wedged in the pelvis. Was utilized to attempt to disengage the head. Due to difficulty obtaining adequate access to the pelvis, the decision was made to transversely incised the rectus muscles bilaterally. The head was then able to be elevated out of the pelvis and the was delivered without difficulty using gentle fundal pressure. The cord was clamped and cut and the infant was handed over to the delivery nurse. Cord gases were obtained. The placenta delivered spontaneously and appeared intact. The uterus was then exteriorized. The hysterotomy was closed in a running locked fashion using #1 Monocryl suture. A second layer of #1 Monocryl was then performed in a imbricating fashion. Stasis was then achieved using [id number] of 3-0 Monocryl suture. The uterus was returned to the abdominal cavity and the gutters were cleared of all Clots and debris. The hysterotomy was reinspected and hemostasis was noted. Was placed over the hysterotomy. The rectus muscles were reapproximated in a running fashion using 3-0 Monocryl suture. Muscles were inspected and hemostasis was noted. Fascia was closed in a running fashion using 0 strata fix suture. Subcutaneous space was copiously irrigated and hemostasis was achieved with the Bovie. Subcutaneous space was closed in a running fashion using 3-0 Monocryl suture. The skin was closed using 4-0 Monocryl suture in a running subcuticular fashion. All counts were correct x2. The patient was taken to the recovery room in stable condition. Amniotic Membrane Rupture Type: Artificial Amniotic Fluid Description: Thick meconium Placenta Disposition: Sent to Pathology Specimen(s) sent to pathology: placenta Drain: Fonseca to straight drain Cord Entanglement: None Cord Vessel Description: 3 Vessels Esitmated Blood Loss (ml): 900 Infant Gender: Male Delayed cord clamping: No Antibiotic Given: - - Ampicillin, gentamicin, and clindamycin Pt instructed on risks of surgery: Bleeding, Anesthesia Risks, Infection, Need for Future C-Sections, Injury to surrounding structure(s) including bowel and bladder Complications: None - Admit VTE Documentation VTE Present on Admission: No Multi Select Codes - Urinary/Genital Urinary/Genital CPT Codes: 19905 Delivery global pkg - failed forceps assisted vaginal delivery
--- NOTE | 2020-02-16 15:28 | PLAC_PTH ---
PATIENT: CHANTELLE JACKSON LOC: WP U#:[id number] AGE/SX: 25/F ROOM: WP007 RE02/14/[address]: Dr. Janell Acevedo MD : 1995 BED: 1 DIS: 02/18/2020 SPEC #: [id number] RECD: 02/16/20 16:14 STATUS: HEIDI REBri #: [id number] [place]: 02/16/20 15:[address]: Janell Acevedo DEPT: SURGICAL PATHOLOGY RECD BY: Juhi Sapp ENTERED: 02/17/20 07:04 SP TYPE: PLACENTA OTHR DR: No Primary Care Phys Tissues: Placenta, NOS Procedures: Surgery Specimen Level V HEADER OPERATION: Primary section PRE-OP DIAGNOSIS: Chorioamnionitis TISSUE SUBMITTED: Placenta MICROSCOPIC DIAGNOSIS Placenta: Placental disc - third trimester placenta (501 gm). -?Acute vasculitis of subamniotic blood vessels. Membranes - acute chorioamnionitis. Umbilical cord - three blood vessels and acute funisitis. BRETT:yao 02/19/20 MICROSCOPIC DESCRIPTION Slides are reviewed. GROSS DESCRIPTION SPECIMEN: PLACENTA / CLINICAL INFORMATION: A. Weight: 3.81 kg B. Gestational Age: 41 weeks C. Sex: Male PLACENTAL WEIGHT (POST FIXATION): 501 gm PLACENTAL DIMENSIONS: 22 x 15 x 3 cm PLACENTAL SHAPE: Oval PLACENTAL WEIGHT FOR GESTATIONAL AGE: Within 10-99th percentile MEMBRANES - Present A. Insertion: Marginal B. Site of rupture from edge: 6 cm from edge of placental disc C. Color of membrane: Michael-greenish, consistent with meconium staining D. Abnormalities: None UMBILICAL CORD - Present A. Color: Michael-fortune B. Insertion: Marginal C. Length: 37 cm D. Diameter: 1.2 cm E. Number of vessels: Three F. Abnormalities: None PLACENTAL DISC - Present A. Color of surface: Michael-fortune B. surface abnormalities: None C. Maternal cotyledons: Intact with minimal tears D. Attached retro placental clot: No clot E. Cut surface: Dark red and spongy F. Lesions: None G. Separate clot: Absent SECTIONS SUBMITTED: 1. Membrane roll 2. Cord, maternal end 3. Cord, end 4. Placental disc, and maternal surfaces 5. Placental disc, and maternal surfaces 6. Placental disc, and maternal surfaces SJ:yao 02/18/20 TC:2 CPT: 52730
[2020-02-16] MEDS: HYDROmorphone 1 MG/ML Syringe IV ×3 (15:57→22:16)
[2020-02-16] MEDS: Lactated Ringers 1,000 ML 100 ML IV (17:50)
[2020-02-16] MEDS: Acetaminophen 500 MG Tablet 1000 MG PO (18:08)
[2020-02-16] MEDS: Ketorolac 30 MG/ML Syringe IV (20:02)
--- NOTE | 2020-02-16 20:24 | NURSING ---
teaching done by Duglas Mccullough RN
[2020-02-16] MEDS: 0.9% Saline Lock 10 ML Syringe IV ×3 (20:42→23:25)
[2020-02-17] MEDS: Acetaminophen 500 MG Tablet 1000 MG PO ×4 (00:40→21:20)
[2020-02-17] MEDS: Hydrocortisone 2.5% Crm 1 APPLIC TOPICAL (00:40)
[2020-02-17 00:47] VITALS: BP 125/80; PULSE 110; RESP 18; TEMP 36.7; O2SAT 98
[2020-02-17] MEDS: 0.9% Saline Lock 10 ML Syringe IV ×7 (01:23→16:41)
[2020-02-17] MEDS: HYDROmorphone 1 MG/ML Syringe IV ×4 (01:24→11:11)
[2020-02-17] MEDS: Enoxaparin 40 MG/0.4 ML Syringe SC (02:17)
[2020-02-17] MEDS: Ketorolac 30 MG/ML Syringe IV ×3 (03:51→16:41)
[2020-02-17 04:25] VITALS: BP 115/56; PULSE 104; RESP 18; TEMP 36.7; O2SAT 96
[2020-02-17 05:58] LABS: Hematocrit 28.6 % (37-47); Hemoglobin 9.5 g/dL (12.0-15.0); Mean Corp Hgb Conc 33.2 g/dL (32-36); Mean Corpuscular Hgb 28.9 pg (27.0-32.0); Mean Corpuscular Volume 86.9 fL (81-99); Platelet Count 172 K/mm3 (150-450); RBC Distribution Width CV 13.4 % (11.6-14.6); Red Blood Count 3.29 M/mm3 (4.2-5.4); White Blood Count 10.6 K/mm3 (4.4-11.0)
[2020-02-17 08:20] VITALS: BP 109/70; PULSE 106; RESP 16; TEMP 35.6; O2SAT 97
--- NOTE | 2020-02-17 08:26 | PCM.PN.OB ---
Patient Problems: Active and Suspected Problems (Last Reviewed 02/14/20 @ 10:59 by Mounika Perea) Encounter for induction of labor (Acute) Subjective: Patient doing well without complaints. Tolerating PO. Pain well controlled. Ambulating and voiding without difficulty. Bottle feeding well. Denies chest pain, shortness of breath, calf pain/swelling, fevers, chills, lightheadedness. Objective: Laboratory Tests 02/17/20 02/14/20 02/14/20 Range/Units 05:43 20:10 20:10 WBC 10.6 12.2 H (4.4-11.0) K/mm3 RBC 3.29 L 4.41 (4.2-5.4) M/mm3 Hgb 9.5 L 12.8 (12.0-15.0) g/dL Hct 28.6 L 38.1 (37-47) % MCV 86.9 86.4 (81-99) fL MCH 28.9 29.0 (27.0-32.0) pg MCHC 33.2 33.6 (32-36) g/dL RDW Std Deviation 42.0 40.3 (35.1-43.9) fl RDW Coeff of Addy 13.4 13.1 (11.6-14.6) % Plt Count 172 222 (150-450) K/mm3 MPV 11.0 11.4 (6.2-12.0) fl Immature Gran % (Auto) 2.200 H (0.0-0.9) % Neut % (Auto) 77.8 H (47-70) % Lymph % (Auto) 10.5 L (19-41) % Hutchinson % (Auto) 8.1 (0-10) % Eos % (Auto) 0.9 (0-5) % Baso % (Auto) 0.5 (0-1) % Absolute Neuts (auto) 9.5 H (2.0-7.7) X10^3/uL Absolute Lymphs (auto) 1.27 (0.83-4.51) X10^3/uL Nucleated RBC % 0 (0-5) % Blood Type O POSITIVE Antibody Screen NEGATIVE - Physical Exam Vitals/I&O's: Vital Signs Temp Pulse Resp BP Pulse Ox 96.1 F L 106 H 16 109/70 97 02/17/20 08:20 02/17/20 08:20 02/17/20 08:20 02/17/20 08:20 02/17/20 08:20 Oxygen Delivery Method Room Air Weight: 216 lb Body Mass Index (BMI) 34.8 Intake and Output for Last 24 Hours 02/15/20 02/16/20 02/17/20 23:59 23:59 23:59 Intake Total 4539.26 / 4539.26 5227.58 / 5227.58 Output Total 1500 / 1500 850 / 850 200 / 200 Balance 3039.26 / 3039.26 4377.58 / 4377.58 -200 / -200 General: Alert, Oriented x3, Cooperative, No apparent distress, Well developed, Well nourished HEENT: Atraumatic, PERRLA, EOMI, Normocephalic Oral: Moist Mucosa Neck: Supple Lungs: Clear to auscultation, Normal air movement, No rhonchi, No wheeze, No rales Cardiovascular: Regular rate, Regular Rhythm Abdomen: Bowel Sounds Present, Soft, Non-Distended, Passing Flatus, Tender - appropriate, - - incision c/d/i Extremities: No Calf Tenderness, Edema - trace Neurological: Cranial nerves II-XII grossly intact, Neuro grossly intact, Motor Exam 5/5 strength throughout Psych/Mental Status: Normal Affect, Appropriate, Alert and oriented to time, place, person, mood and affect Laboratory Results 02/17/20 05:43: WBC 10.6, RBC 3.29 L, Hgb 9.5 L, Hct 28.6 L, MCV 86.9, MCH 28.9, MCHC 33.2, RDW Std Deviation 42.0, RDW Coeff of Addy 13.4, Plt Count 172, MPV 11.0 Current Medications Acetaminophen (Tylenol) 1,000 mg PO Q6H [facility] Last Admin: 02/17/20 08:09 Dose: 1,000 mg Documented by: Bisacodyl (Dulcolax) 10 mg RECTAL UD PRN PRN Reason: If no BM Enoxaparin Sodium (Lovenox) 40 mg SC DAILY SONA Last Admin: 02/17/20 02:17 Dose: 40 mg Documented by: Hydrocortisone (Hytone) 1 applic TOPICAL TID PRN PRN; Protocol PRN Reason: Discomfort Last Admin: 02/17/20 00:40 Dose: 1 applicatio Documented by: Hydromorphone HCl (Dilaudid Inj) 0.5 - 1.5 mg IV Q3H PRN PRN PRN Reason: Pain Score 4-10/10 Stop: 02/17/20 15:29 Last Admin: 02/17/20 08:09 Dose: 1 mg Documented by: Lactated Ringer's () 1,000 mls @ 100 mls/hr IV .Q10H [facility] [place] Last Admin: 02/17/20 01:30 Dose: Not Given Documented by: Naloxone HCl 4 mg/ Dextrose 504 mls @ 0 mls/hr IV .Q0M PRN; Protocol PRN Reason: Respiratory depression Ibuprofen (Motrin) 600 mg PO Q6H [facility] Ketorolac Tromethamine (Toradol (Bkc)) 30 mg IV Q6H [facility] Stop: 02/17/20 14:01 Last Admin: 02/17/20 03:51 Dose: 30 mg Documented by: Methylergonovine Maleate (Methergine) 0.2 mg IM X1 PRN PRN Reason: Uterine Atony Naloxone HCl (Narcan) 0.02 mg IV Q1M PRN PRN Reason: RR <10 and pt unresponsive Ondansetron HCl (Zofran) 4 mg IV Q4H PRN PRN PRN Reason: Nausea Oxycodone HCl (Oxyir) 5 - 10 mg PO Q4H PRN PRN PRN Reason: Pain Score 4-10/10 Prochlorperazine Edisylate (Compazine Iv) 10 mg IV Q6H PRN PRN PRN Reason: NAUSEA Senna/Docusate Sodium (Senokot-S, Jennifer-Colace) 1 - 2 tablet PO DAILY [facility] Simethicone (Mylicon) 80 mg PO PCHS PRN PRN Reason: Indigestion/stomach pain Sodium Chloride () 5 - 15 ml IV UD PRN PRN Reason: SALINE FLUSH Last Admin: 02/17/20 08:10 Dose: 10 ml Documented by: Medical Necessity - Tobacco Use Smoking Status: Never smoker Assessment/Plan All Active Problems (Last Reviewed 02/14/20 @ 10:59 by Mounika Perea) Encounter for induction of labor (Acute) Family history of multiple sclerosis (Acute) Family history of genetic disease (Acute) Supervision of normal (Acute) (Acute) Ovarian cyst (Resolved) Threatened (Resolved) Uterine size-date discrepancy, third trimester (Resolved) s/p LTCS PPD # 1 1. routine post care 2. acute blood loss anemia - hb 9.5, will order iron 3. breast feeding- support given 4. rh positive 5. rubella immune
[2020-02-17] MEDS: Senna/Docusate Sodium 1 Tablet PO (10:24)
[2020-02-17] MEDS: Ferrous Sulfate 325 MG Tablet PO ×2 (11:11→16:41)
[2020-02-17 13:26] VITALS: BP 124/66; PULSE 109; RESP 16; TEMP 36.1; O2SAT 98
[2020-02-17] MEDS: oxyCODONE 5 MG Tablet PO ×3 (15:14→23:32)
[2020-02-17 16:56] VITALS: BP 117/69; PULSE 118; RESP 17; TEMP 35.9; O2SAT 96
[2020-02-17 19:45] VITALS: BP 119/62; PULSE 100; RESP 18; TEMP 36.1; O2SAT 98
[2020-02-17] MEDS: Ibuprofen 600 MG Tablet PO (21:53)
[2020-02-18 01:45] VITALS: BP 120/75; PULSE 116; RESP 16; TEMP 36.5
[2020-02-18] MEDS: Acetaminophen 500 MG Tablet 1000 MG PO (03:15)
[2020-02-18] MEDS: oxyCODONE 5 MG Tablet PO ×2 (03:34→07:37)
[2020-02-18] MEDS: Ibuprofen 600 MG Tablet PO (03:34)
[2020-02-18 08:00] VITALS: BP 120/59; PULSE 97; RESP 18; TEMP 36.7; O2SAT 98
--- NOTE | 2020-02-18 08:12 | PN.OBGYN_ITS ---
Patient Problems: Active and Suspected Problems (Last Reviewed 02/14/20 @ 10:59 by Mounika Perea) Encounter for induction of labor (Acute) Subjective: Patient doing well without complaints. Tolerating PO. Ambulating and voiding without difficulty. Breast and bottle feeding well. Denies chest pain, shortness of breath, calf pain/swelling, fevers, chills, lightheadedness. - Physical Exam Vitals/I&O's: Vital Signs Temp Pulse Resp BP Pulse Ox 97.7 F L 116 H 16 120/75 98 02/18/20 01:45 02/18/20 01:45 02/18/20 01:45 02/18/20 01:45 02/17/20 19:45 Oxygen Delivery Method Room Air Weight: 216 lb Body Mass Index (BMI) 34.8 Intake and Output for Last 24 Hours 02/16/20 02/17/20 02/18/20 23:59 23:59 23:59 Intake Total 5227.58 / 5227.58 Output Total 850 / 850 200 / 200 Balance 4377.58 / 4377.58 -200 / -200 General: Alert, Oriented x3 HEENT: Atraumatic Lungs: Clear to auscultation Cardiovascular: Regular rate, Regular Rhythm Abdomen: Soft, Non-Distended - Tender appropriately, FF below U. Dressing dry and intact Current Medications Acetaminophen (Tylenol) 1,000 mg PO Q6H [facility] Last Admin: 02/18/20 03:15 Dose: 1,000 mg Documented by: Bisacodyl (Dulcolax) 10 mg RECTAL UD PRN PRN Reason: If no BM Enoxaparin Sodium (Lovenox) 40 mg SC DAILY [facility] Last Admin: 02/17/20 02:17 Dose: 40 mg Documented by: Ferrous Sulfate (Ferrous Sulfate) 325 mg PO 1200,1700 [facility] Last Admin: 02/17/20 16:41 Dose: 325 mg Documented by: Hydrocortisone (Hytone) 1 applic TOPICAL TID PRN PRN; Protocol PRN Reason: Discomfort Last Admin: 02/17/20 00:40 Dose: 1 applicatio Documented by: Naloxone HCl 4 mg/ Dextrose 504 mls @ 0 mls/hr IV .Q0M PRN; Protocol PRN Reason: Respiratory depression Ibuprofen (Motrin) 600 mg PO Q6H [facility] Last Admin: 02/18/20 03:34 Dose: 600 mg Documented by: Methylergonovine Maleate (Methergine) 0.2 mg IM X1 PRN PRN Reason: Uterine Atony Naloxone HCl (Narcan) 0.02 mg IV Q1M PRN PRN Reason: RR <10 and pt unresponsive Ondansetron HCl (Zofran) 4 mg IV Q4H PRN PRN PRN Reason: Nausea Oxycodone HCl (Oxyir) 5 - 10 mg PO Q4H PRN PRN PRN Reason: Pain Score 4-10/10 Last Admin: 02/18/20 07:37 Dose: 5 mg Documented by: Prochlorperazine Edisylate (Compazine Iv) 10 mg IV Q6H PRN PRN PRN Reason: NAUSEA Senna/Docusate Sodium (Senokot-S, Jennifer-Colace) 1 - 2 tablet PO DAILY [facility] Last Admin: 02/17/20 10:24 Dose: 2 tablet Documented by: Simethicone (Mylicon) 80 mg PO PCHS PRN PRN Reason: Indigestion/stomach pain Sodium Chloride () 5 - 15 ml IV UD PRN PRN Reason: SALINE FLUSH Last Admin: 02/17/20 16:41 Dose: 10 ml Documented by: Medical Necessity - Tobacco Use Smoking Status: Never smoker Assessment/Plan All Active Problems (Last Reviewed 02/14/20 @ 10:59 by Mounika Perea) Encounter for induction of labor (Acute) Family history of multiple sclerosis (Acute) Family history of genetic disease (Acute) Supervision of normal (Acute) (Acute) Ovarian cyst (Resolved) Threatened (Resolved) Uterine size-date discrepancy, third trimester (Resolved) s/p LTCS PPD #2 1. routine post care 2. breast/bottle feeding- support given 3. rh positive 4. rubella immune 5. home today
--- NOTE | 2020-02-18 08:14 | DCINST_ITS ---
Additional Instructions: If you experience any of the following, contact your healthcare provider. * Bleeding that soaks a pad every hour for 2 hours * Fever 100.4 or higher * Unrelieved incision or abdominal pain * Swelling, redness, discharge or bleeding from your incision or episiotomy site * Your incision begins to separate * Problems urinating (including inability to urinate or burning while urinating). * Visual changes * Severe headache * Flu-like symptoms * Pain or redness in one of both of your breasts * Pain, warmth, tenderness or swelling in your legs, especially the calf area * Frequent nausea and vomiting * Symptoms of depression or anxiety If you experience any of the following, call 911 or go to the nearest Emergency Room. * Chest pain * Problems breathing * Seizure activity * Partial or complete paralysis of a body part, slurred speech, weakness or drooping of the face, or a sudden inability to walk or hold your balance Allergies/Adverse Reactions: Allergies morphine Allergy (Verified 02/14/20 10:59) Hives Medications to take at Discharge vitamin#30 30 mg iron-10 mg iron-folic acid 1 mg-omg3 capsule 1 cap PO DAILY 06/26/19 Ferrous Sulfate [Iron] 325 mg PO DAILY 02/14/20 Ondansetron [Ondansetron Odt] See Rx Instructions .ROUTE .COMPLEX 02/14/20 Naproxen [Naprosyn] 500 mg PO BID PRN PRN #60 tab 02/18/20 The following prescriptions were given: Naproxen [Naprosyn] 500 mg PO BID PRN PRN #60 tab PRN Reason: Pain Transmission Status: Pending to [facility] Follow-Up: Call to make an appointment with your doctor for an incision check in 1-2 weeks. You will also need a 6 week post- follow up appointment. Test results from this visit will be discussed in further detail at your follow- up appointment, if applicable. Primary Care Physician: Care Physician,No Primary [Primary Care Provider] -
--- NOTE | 2020-02-18 08:14 | PCM.DCCSEC ---
Additional Instructions: If you experience any of the following, contact your healthcare provider. Bleeding that soaks a pad every hour for 2 hours Fever 100.4 or higher Unrelieved incision or abdominal pain Swelling, redness, discharge or bleeding from your incision or episiotomy site Your incision begins to separate Problems urinating (including inability to urinate or burning while urinating). Visual changes Severe headache Flu-like symptoms Pain or redness in one of both of your breasts Pain, warmth, tenderness or swelling in your legs, especially the calf area Frequent nausea and vomiting Symptoms of depression or anxiety If you experience any of the following, call 911 or go to the nearest Emergency Room. Chest pain Problems breathing Seizure activity Partial or complete paralysis of a body part, slurred speech, weakness or drooping of the face, or a sudden inability to walk or hold your balance Allergies/Adverse Reactions: Allergies morphine Allergy (Verified 02/14/20 10:59) Hives Medications to take at Discharge vitamin#30 30 mg iron-10 mg iron-folic acid 1 mg-omg3 capsule 1 cap PO DAILY 06/26/19 Ferrous Sulfate [Iron] 325 mg PO DAILY 02/14/20 Ondansetron [Ondansetron Odt] See Rx Instructions .ROUTE .COMPLEX 02/14/20 Naproxen [Naprosyn] 500 mg PO BID PRN PRN #60 tab 02/18/20 The following prescriptions were given: Naproxen [Naprosyn] 500 mg PO BID PRN PRN #60 tab PRN Reason: Pain Transmission Status: Pending to [facility] Follow-Up: Call to make an appointment with your doctor for an incision check in 1-2 weeks. You will also need a 6 week post- follow up appointment. Test results from this visit will be discussed in further detail at your follow-up appointment, if applicable. Primary Care Physician: Care Physician,No Primary [Primary Care Provider] -
[2020-02-19 13:51] LABS: Pathology Specimen OB SEE PATHOLOGY REPORT
== END 2020-02-18 10:40 | disposition home or self-care (01) | DRG 787 ==
PROVIDERS: Admitting Provider Obstetrics & Gynecology; Visit Provider Obstetrics & Gynecology
DX: O76 Abnormality in fetal heart rate and rhythm complicating labor and delivery (principal); D62 Acute posthemorrhagic anemia; O63.9 Long labor, unspecified; Z37.0 Single live birth; O99.02 Anemia complicating childbirth; O77.0 Labor and delivery complicated by meconium in amniotic fluid; O48.0 Post-term pregnancy; O99.214 Obesity complicating childbirth; E66.9 Obesity, unspecified; O66.5 Attempted application of vacuum extractor and forceps; Z3A.41 41 weeks gestation of pregnancy; Z82.0 Family history of epilepsy and other diseases of the nervous system; Z84.89 Family history of other specified conditions
CPT/HCPCS: 59025; 59050; 85025; 85027; 86850; 86900; 86901; 88307; 99218; J7120; A4216; G0378; J2405

== ENCOUNTER 2020-02-18 16:29 | Inpatient (IN) | payer BC, SELFPAY ==
[2020-02-14 19:10] VITALS: BMI 34.8
[2020-02-18 16:30] VITALS: BP 148/79; PULSE 129; RESP 18; TEMP 39.3; O2SAT 99; BMI 33.2
--- NOTE | 2020-02-18 16:36 | ED.RN ---
DR. BIRCH INFORMED OF PT BP, AND REASON FOR VISIT. REPORTS PT TO BE SEEN IN ED RATHER THAN OB.
--- NOTE | 2020-02-18 17:12 | ED.DCSUM_ITS ---
History of Present Illness Chief Complaint: Fever Informant: Patient, Family Onset: Today Context: Gradual Onset Timing: Continuous Current Severity: Moderate Maximum Severity: Moderate Narrative: The patient is a 25-year-old female who is G1, P1 that is 2 days status post C- section the presents to the emergency department fever. Patient was just discharged from the hospital today. She had due to failure to progress. She states that she did have an epidural. She states today, she just felt warm. She had generalized malaise. She denies headache or visual change. She does have some pain along her incision. She states that her bleeding has significantly slowed. She denies any malodorous discharge. She denies any breast pain or rash. She denies any urinary symptoms. Patient was feeling just like she had some generalized malaise. She called her thinner sprayer who sent her in for further evaluation. She had no difficulties with hypertension during the . Prior similar symptoms: No Recent Illness/Hospitalization: Yes Past Medical History - Allergies and Home Meds Allergies/Adverse Reactions: Allergies morphine Allergy (Verified 02/18/20 16:30) Pebbles Primary Care Physician: NOT,DEFINED [NON-STAFF] - Prior records reviewed: Yes Past Medical History: None Surgical History: - Smoking Status: Never smoker Review of Systems ROS: - General: Reports: Chills, Fever, Malaise Eyes: Denies: Visual changes - bilaterally, Diplopia ENT: Denies: Rhinorrhea, Sore throat Cardiovascular: Denies: Chest pain, Palpitations Respiratory: Denies: Dyspnea, Cough, Dyspnea on exertion Gastrointestinal: Reports: Abdominal pain. Denies: Nausea, Vomiting, Diarrhea, Melena, Hematochezia Genitourinary: Denies: Dysuria, Hematuria, Frequency Musculoskeletal: Denies: Back pain, Extremity Pain Skin: Denies: Rash, Wounds Neurological: Denies: Headache, Weakness, Numbness Physical Exam Vital Signs/Narrative: Vital Signs Temp Pulse Resp BP Pulse Ox 02/18/20 16:30 102.7 F H 129 H 18 148/79 H 99 Inital Vital Signs reviewed: Yes General: Well nourished, Well developed, No Acute Distress Head: Normocephalic, Atraumatic Eyes: Perrl, EOMI ENT: Moist mucous membranes, No rhinorrhea Neck: Supple, Nontender Cardiovascular: Regular rate, Regular rhythm, No murmurs Respiratory: No distress, CTA bilaterally, Chest nontender Abdomen: Soft, Nondistended, Normal bowel sounds, Tender. Negative for: Guarding, Rebound tenderness Back: Nontender, Normal Inspection Extremities: Nontender, No edema Skin: Normal color, No rash Neurological: Alert, Oriented x3, Cranial nerves II-XII grossly intact, Normal Strength, Normal Sensation Psychological: Normal affect, Normal Mood Diagnostic/Tx/Re-eval Clinical Impression(s) from Imaging Studies Chest X-Ray 02/18/20 17:25 IMPRESSION: Normal x-ray examination of the chest. Electronically Signed: Mahin Florentino MD at 18:00 EDT , Service support , Transvaginal US 02/18/20 18:38 IMPRESSION: Thickened endometrium containing echogenic foci which shadow. Findings are consistent with blood clot versus retained products of conception. This is difficult to assess as Adequate DOPPLER images of the endometrium were not obtained. The ovaries appear normal. There is no fluid in the cul-de-sac. Electronically Signed: Mahin Florentino MD at 20:37 EDT , Service support , Abnormal Lab Results 02/18/20 02/18/20 02/18/20 17:30 17:30 17:30 WBC 4.4 RBC 2.78 L Hgb 8.1 L Hct 24.4 L MCV 87.8 MCH 29.1 MCHC 33.2 RDW Std Deviation 42.4 RDW Coeff of Addy 13.2 Plt Count 196 MPV 11.6 Immature Gran % (Auto) 4.500 H Neut % (Auto) 83.1 H Lymph % (Auto) 6.8 L Kleberg % (Auto) 5.2 Eos % (Auto) 0.2 Baso % (Auto) 0.2 Absolute Neuts (auto) 3.7 Absolute Lymphs (auto) 0.30 L Nucleated RBC % 0 Differential Comment SEE COMMENT Platelet Estimate ADEQUATE RBC Morphology N CHROM Anisocytosis RARE Sodium 138 Potassium 3.5 Chloride 106 Carbon Dioxide 24.0 Anion Gap 8 BUN 12 Creatinine 0.92 Estim Creat Clear Calc 86.75 Est GFR (MDRD) Af Amer 95 Est GFR (MDRD) Non-Af 79 BUN/Creatinine Ratio 13.1 Glucose 65 L Calcium 8.1 L Total Bilirubin 0.60 AST 45 H ALT 29 Alkaline Phosphatase 210 H Total Protein 5.8 L Albumin 1.8 L Globulin 4.0 Albumin/Globulin Ratio 0.4 L Urine Color Red Urine Clarity Cloudy Urine pH 6.0 Ur Specific [place] 1.015 Urine Protein 100 H Urine Glucose (UA) Normal Urine Ketones 5 H Urine Occult Blood 250 H Urine Nitrite Negative Urine Bilirubin Negative Urine Urobilinogen 4 H Ur Leukocyte Esterase 500 H Urine RBC > 100 SEEN Urine WBC >100 SEEN Ur Squamous Epith Cells 5-10 SEEN Amorphous Sediment 1+ URATE Urine Bacteria RARE Urine Mucus 0 SEEN - Medical Decision Making The patient presents with fever. She is from . She did have prolonged labor with rupture of membranes. She was treated with 24 hours antibiotics and discharged today. She then had a fever of 102.4. Broad metabolic work-up was pursued. The patient does not like lethargic, listless or toxic. She is mildly hypertensive on arrival, but I do feel this is likely secondary to pain. She has no peripheral edema. She has no right upper quadrant pain. Metabolic work-up shows mild leukopenia with a significant left shift. Liver functions were unremarkable. Platelets were normal. I discussed her case with Dr. Pro Leija, her [facility]. We did obtain ultrasound which was questionable retained products, but I do feel that her symptoms are likely more consistent with endometritis. The patient is going to be started on broad- spectrum antibiotics and will be admitted to [facility]. She is comfortable with this plan of care. Impression 1. Endometritis ED Disposition - Plan for ED Patient: Referrals: NOT,DEFINED [NON-STAFF] -
[2020-02-18] MEDS: Acetaminophen 500 MG Tablet 1000 MG PO (17:20)
[2020-02-18] MEDS: 0.9% Normal Saline 1,000 ML 1000 ML IV (17:21)
--- NOTE | 2020-02-18 17:25 | RAD_ITS ---
STUDY: X-RAY CHEST REASON FOR EXAM: Female, 25 years old. PT HAD ON MONDAY. INTERMITTENT FEVER DURING HOSPITAL STAY. SENT TO ER BY DR. DOUGLAS. TECHNIQUE: PA and lateral views of the chest. COMPARISON: None. FINDINGS: The lungs are clear and expanded. There is no demonstrated pleural abnormality. Normal size heart. Normal mediastinum and savi. Normal visualized pulmonary arteries. Normal visualized aortic arch and descending thoracic aorta. Normal visualized thoracic spine. Normal visualized ribs, clavicles, and shoulders. There is no demonstrated abnormality of the visualized soft tissue structures of the upper abdomen. RAD/Chest PA and Lateral IMPRESSION: Normal x-ray examination of the chest. Electronically Signed: Mahin Florentino MD at 18:00 EDT , Service support ,
[2020-02-18 17:38] LABS: Mucous, Urine 0 SEEN /hpf (<or=2+)
[2020-02-18 17:48] LABS: Color, Urine Red (Yellow); Glucose, Dipstick Normal (Normal); Ketone-Dipstick 5 mg/dl (Negative); Leukocyte Esterase-Dipstick 500 /ul (Negative); Nitrite-Dipstick Negative (Negative); Occult Blood-Urine 250 /ul (Negative); Protein-Dipstick 100 mg/dl (Negative); Specific Gravity, Urine 1.015 (1.002-1.030); Urine Bilirubin Dipstick Negative (Negative); Urine Clarity Cloudy (Clear); Urine Urobilinogen 4 mg/dl (Normal)
[2020-02-18 18:13] LABS: ALB/GLOB Ratio 0.4 RATIO (0.9-2.4); AST(SGOT) 45 U/L (15-37); Alanine Aminotransfer ALT/SGPT 29 U/L (13-56); Albumin, Serum 1.8 g/dL (3.2-5.0); Alkaline Phosphatase 210 U/L (45-117); Anion Gap 8 (5-15); BUN 12 mg/dL (7-18); BUN/Creat Ratio 13.1 RATIO (10-20); Calcium,Total 8.1 mg/dL (8.5-10.1); Chloride 106 mmol/L (98-107); Creatinine, Serum 0.92 mg/dL (0.55-1.02); EST Glomerular Filtration Rate 79 mL/min (>60); Est Glom Filt Rate - Afr Amer 95 mL/min (>60); Estimated Creatinine Clearance 86.75 ml/min; Glucose 65 mg/dL (74-106); Potassium 3.5 mmol/L (3.5-5.1); Protein, Total 5.8 g/dL (6.4-8.2); Sodium Level 138 mmol/L (136-145)
[2020-02-18 18:29] LABS: Absolute Neutrophil Count 3.7 X10^3/uL (2.0-7.7); Basophil# 0.01 X10^3/uL; Basophil% 0.2 % (0-1); Eosinophil# 0.01 X10^3/uL; Eosinophils% 0.2 % (0-5); Hematocrit 24.4 % (37-47); Hemoglobin 8.1 g/dL (12.0-15.0); Lymphocyte % 6.8 % (19-41); Mean Corp Hgb Conc 33.2 g/dL (32-36); Mean Corpuscular Hgb 29.1 pg (27.0-32.0); Mean Corpuscular Volume 87.8 fL (81-99); Mean Platelet Vol. 11.6 fl (6.2-12.0); Monocyte# 0.23 X10^3/uL; Monocyte% 5.2 % (0-10); NRBC Flagged by Analyzer 0 % (0-5); Neutrophil # 3.65 X10^3/uL (2.7-7.7); Neutrophil % 83.1 % (47-70); POSITIVE DIFFERENTIAL YES; Platelet Count 196 K/mm3 (150-450); RBC Distribution Width CV 13.2 % (11.6-14.6); RBC Distribution Width SD 42.4 fl (35.1-43.9); Red Blood Count 2.78 M/mm3 (4.2-5.4); White Blood Count 4.4 K/mm3 (4.4-11.0)
[2020-02-18 18:32] LABS: Differential Indicated SCAN CRITERIA MET
--- NOTE | 2020-02-18 18:38 | US_ITS ---
STUDY: ULTRASOUND OF THE FEMALE PELVIS - COMPLETE REASON FOR EXAM: Female, 25 years old. FEVER WITH HEAVY BLEEDING POST C SECTION ON MondayJan LMP: TECHNIQUE: Transabdominal and Transvaginal TECHNICAL QUALITY: Adequate. COMPARISON: Prior study of 02/16/2018 FINDINGS: The uterus is anteverted and is in a midline position. The uterus measures 17.0 x 12.6 x 8.6 cm. Normal uterine cervix. The endometrium measures 24 mm in thickness, and is hyperechoic. There are echogenic endometrial foci demonstrating shadowing. There is no demonstrated myometrial mass. I.U.D. - The patient does not have an I.U.D. The right ovary is visualized. The right ovary measures 6.0 x 3.3 x 3.6 cm. There is no right ovarian cyst or ovarian mass. There is no visualized right adnexal mass or complex lesion. There is normal arterial and normal venous vascularity. The left ovary is visualized. The left ovary measures 4.9 x 2.9 x 3.1 cm. There is no left ovarian cyst or ovarian mass. There is no visualized left adnexal mass or complex lesion. There is normal arterial and normal venous vascularity. There is no fluid in the cul-de-sac. US/Transvaginal Non- IMPRESSION: Thickened endometrium containing echogenic foci which shadow. Findings are consistent with blood clot versus retained products of conception. This is difficult to assess as Adequate DOPPLER images of the endometrium were not obtained. The ovaries appear normal. There is no fluid in the cul-de-sac. Electronically Signed: Mahin Florentino MD at 20:37 EDT , Service support ,
[2020-02-18 18:45] LABS: Red Blood Cells-Urine > 100 SEEN /hpf (0-5); Squamous Epithelial Cells - UA 5-10 SEEN /hpf (5-10); White Blood Cells >100 SEEN /hpf (0-5)
[2020-02-18 18:46] LABS: Amorphous Sediment 1+ URATE; Bacteria RARE /hpf (None Seen)
[2020-02-18] MEDS: HYDROmorphone 0.5 MG/0.5 ML SYRINGE IV (18:56)
[2020-02-18] MEDS: Dextrose 50%-Water 25 GM/50 ML DISP.SYRIN IV (18:56)
[2020-02-18 19:01] VITALS: RESP 16
[2020-02-18 19:14] LABS: Anisocytosis RARE; Platelet Estimate ADEQUATE (ADEQ); Red Cell Morphology N CHROM NORMAL (NORM C&C)
[2020-02-18 19:17] VITALS: BP 110/68
--- NOTE | 2020-02-18 21:48 | PCM.HP.STD ---
History of Present Illness Date of Admission: 02/18/20 Chief Complaint: Fevers The patient is a 25 year old F G1, P1 who presents postop day 2 from a primary section for failed forceps assisted vaginal delivery with fevers. She had fevers up to 100.9 at home. She was discharged earlier in the day today and had been afebrile throughout her course. Labor course was complicated by chorioamnionitis for which she did receive ampicillin and gentamicin. She received 1 additional dose of ampicillin, gentamicin, and clindamycin immediately following delivery. She was afebrile throughout the course. On arrival in the emergency department she is febrile up to 102.7 ?F. She denies chest pain, cough, shortness of breath, lightheadedness, dizziness, foul-smelling discharge, incision site drainage, increasing abdominal pain, headaches. She is both breast and bottlefeeding and has not noticed any breast redness or pain. Past Medical History Medical History: Medical History (Last Reviewed 02/18/20 @ 21:[address] Janell Acevedo MD) Abnormal ultrasound R93.89 Asthma J45.909 Allergies morphine Allergy (Verified 02/18/20 16:30) Hives Home Medications: Ambulatory Orders Medication Instructions Recorded vitamin#30 30 mg iron-10 1 cap PO DAILY 06/26/19 mg iron-folic acid 1 mg-omg3 capsule Ferrous Sulfate [Iron] 325 mg PO DAILY 02/14/20 Ondansetron [Ondansetron Odt] See Rx Instructions .ROUTE .COMPLEX 02/14/20 Naproxen [Naprosyn] 500 mg PO BID PRN PRN #60 tab 02/18/20 Oxycodone HCl 5 mg PO Q6H PRN PRN 7 Days #15 tab 02/18/20 Oxycodone HCl/Acetaminophen 1 - 2 tab PO Q6H PRN PRN 7 Days 02/18/20 [Percocet 5-325] #15 tab Surgical History: Surgical History (Last Reviewed 02/18/20 @ 21:[address] Janell Aceveod MD) H/O breast biopsy Z98.890 right- negative History of appendectomy Z90.49 Surgical History: - Lives: Spouse/ Significant Other Smoking Status: Never smoker Tobacco Use: Non-smoker Alcohol: None Drugs: None Review of Systems Constitutional: Reports: Chills, Fever, Fatigue HEENT: Denies: Head Aches, Nasal Congestion, Sinus Drainage, Sore Throat Cardiovascular: Reports: Edema. Denies: Chest Pain, Chest Pressure, Chest Tightness, Light Headedness, Palpitations Respiratory: Denies: Cough, Shortness of Breath Gastrointestinal: Reports: Abdominal Pain. Denies: Constipation, Diarrhea, Nausea, Vomiting Genitourinary: Denies: Dysuria, Frequency Gynecological: Reports: Vaginal bleeding. Denies: Breast symptoms, Vaginal discharge Neurological: Denies: Blurred vision, Headaches Psychiatric: Denies: Anxiety, Depression VTE Information - Inpt Only VTE Present on Admission: No VTE Mechan Device Prophylaxis: SCD's VTE Pharm Prophylaxis ordered?: Yes Subjective: Clinical Impression(s) from Imaging Studies Chest X-Ray 02/18/20 17:25 IMPRESSION: Normal x-ray examination of the chest. Electronically Signed: Mahin Florentino MD at 18:00 EDT , Service support , Transvaginal US 02/18/20 18:38 IMPRESSION: Thickened endometrium containing echogenic foci which shadow. Findings are consistent with blood clot versus retained products of conception. This is difficult to assess as Adequate DOPPLER images of the endometrium were not obtained. The ovaries appear normal. There is no fluid in the cul-de-sac. Electronically Signed: Mahin Florentino MD at 20:37 EDT , Service support , Laboratory Results - last 24 hr 02/18/20 02/18/20 02/18/20 17:30 17:30 17:30 WBC 4.4 RBC 2.78 L Hgb 8.1 L Hct 24.4 L MCV 87.8 MCH 29.1 MCHC 33.2 RDW Std Deviation 42.4 RDW Coeff of Addy 13.2 Plt Count 196 MPV 11.6 Immature Gran % (Auto) 4.500 H Neut % (Auto) 83.1 H Lymph % (Auto) 6.8 L [place] % (Auto) 5.2 Eos % (Auto) 0.2 Baso % (Auto) 0.2 Absolute Neuts (auto) 3.7 Absolute Lymphs (auto) 0.30 L Nucleated RBC % 0 Differential Comment SEE COMMENT Platelet Estimate ADEQUATE RBC Morphology N CHROM Anisocytosis RARE Sodium 138 Potassium 3.5 Chloride 106 Carbon Dioxide 24.0 Anion Gap 8 BUN 12 Creatinine 0.92 Estim Creat Clear Calc 86.75 Est GFR (MDRD) Af Amer 95 Est GFR (MDRD) Non-Af 79 BUN/Creatinine Ratio 13.1 Glucose 65 L Calcium 8.1 L Total Bilirubin 0.60 AST 45 H ALT 29 Alkaline Phosphatase 210 H Total Protein 5.8 L Albumin 1.8 L Globulin 4.0 Albumin/Globulin Ratio 0.4 L Urine Color Red Urine Clarity Cloudy Urine pH 6.0 Ur Specific [place] 1.015 Urine Protein 100 H Urine Glucose (UA) Normal Urine Ketones 5 H Urine Occult Blood 250 H Urine Nitrite Negative Urine Bilirubin Negative Urine Urobilinogen 4 H Ur Leukocyte Esterase 500 H Urine RBC > 100 SEEN Urine WBC >100 SEEN Ur Squamous Epith Cells 5-10 SEEN Amorphous Sediment 1+ URATE Urine Bacteria RARE Urine Mucus 0 SEEN - Physical Exam Vitals/I&O's: Vital Signs Temp Pulse Resp BP Pulse Ox 102.7 F H 129 H 16 110/68 99 02/18/20 16:30 02/18/20 16:30 02/18/20 19:01 02/18/20 19:17 02/18/20 16:30 Oxygen Delivery Method Room Air Weight: 205 lb 15.162 oz Body Mass Index (BMI) 33.2 Intake and Output for Last 24 Hours 02/16/20 02/17/20 02/18/20 23:59 23:59 23:59 Intake Total 1000 / 1000 Balance 1000 / 1000 General: Alert, Oriented x3, Cooperative, No apparent distress HEENT: Atraumatic, PERRLA, EOMI, Normocephalic Oral: Moist Mucosa Neck: Supple, No JVD Lungs: Normal air movement, - - not short of breath, not tachypneic Cardiovascular: Regular rate, Regular Rhythm Abdomen: Soft, Non-Distended, - - fundal tenderness, incision dry with dressing in place Extremities: No Calf Tenderness, Edema - 2+ pedal edema bilaterally, equal bilaterally Neurological: Cranial nerves II-XII grossly intact, Neuro grossly intact Psych/Mental Status: Normal Affect, Appropriate, Alert and oriented to time, place, person, mood and affect Laboratory Results 02/18/20 17:30: WBC 4.4, RBC 2.78 L, Hgb 8.1 L, Hct 24.4 L, MCV 87.8, MCH 29.1, MCHC 33.2, RDW Std Deviation 42.4, RDW Coeff of Addy 13.2, Plt Count 196, MPV 11.6, Immature Gran % (Auto) 4.500 H, Neut % (Auto) 83.1 H, Lymph % (Auto) 6.8 L, [place] % (Auto) 5.2, Eos % (Auto) 0.2, Baso % (Auto) 0.2, Absolute Neuts (auto) 3.7, Absolute Lymphs (auto) 0.30 L, Nucleated RBC % 0, Differential Comment SEE COMMENT, Platelet Estimate ADEQUATE, RBC Morphology N CHROM, Anisocytosis RARE 02/18/20 17:30: Sodium 138, Potassium 3.5, Chloride 106, Carbon Dioxide 24.0, Anion Gap 8, BUN 12, Creatinine 0.92, Estim Creat Clear Calc 86.75, Est GFR (MDRD) Af Amer 95, Est GFR (MDRD) Non-Af 79, BUN/Creatinine Ratio 13.1, Glucose 65 L, Calcium 8.1 L, Total Bilirubin 0.60, AST 45 H, ALT 29, Alkaline Phosphatase 210 H, Total Protein 5.8 L, Albumin 1.8 L, Globulin 4.0, Albumin/Globulin Ratio 0.4 L 02/18/20 17:30: Urine Color Red, Urine Clarity Cloudy, Urine pH 6.0, Ur Specific [place] 1.015, Urine Protein 100 H, Urine Glucose (UA) Normal, Urine Ketones 5 H, Urine Occult Blood 250 H, Urine Nitrite Negative, Urine Bilirubin Negative, Urine Urobilinogen 4 H, Ur Leukocyte Esterase 500 H, Urine RBC > 100 SEEN, Urine WBC >100 SEEN, Ur Squamous Epith Cells 5-10 SEEN, Amorphous Sediment 1+ URATE, Urine Bacteria RARE, Urine Mucus 0 SEEN Current Medications Ampicillin Sodium 2 gm/ Sodium (Chloride) 100 mls @ 200 mls/hr IV X1 ONE Stop: 02/19/20 21:23 Naproxen (Naprosyn) 500 mg PO BID PRN PRN PRN Reason: Pain Score 1-10/10 Non-Formulary Medication (Pnv #[id number] [id number]) 1 cap PO DAILY SONA Assessment/Plan All Active Problems (Last Reviewed 02/14/20 @ 10:59 by Mounika Perea) Encounter for induction of labor (Acute) Family history of multiple sclerosis (Acute) Family history of genetic disease (Acute) Supervision of normal (Acute) (Acute) Ovarian cyst (Resolved) Threatened (Resolved) Uterine size-date discrepancy, third trimester (Resolved) 25-year-old G1, P1 postop day 2 from a repeat section admitted for suspected endometritis 1. endometritis -Patient febrile up to 102.7 in the emergency department with tachycardia up into the 120s. Well-appearing and nontoxic on exam. -Chest x-ray negative for acute process. -White blood cell count 4.4, however significant left shift noted. -Urinalysis appears contaminated. -Ultrasound performed in the emergency department shows thickened heterogeneous appearing endometrial lining. Lining is 23 mm in greatest thickness. Ultrasound images reviewed and are not concerning for retained products of conception, but are concerning for endometritis. -Denies breast symptoms, cough, shortness of breath, calf swelling or redness. -Given that patient had chorioamnionitis intrapartum during her labor and delivery course and presents with fevers, concerned at this time for endometritis. Patient admitted with plan for 24 hours of ampicillin, gentamicin, and clindamycin. Discussed with patient that as long as she remains afebrile after this time, will likely plan for discharge to home with Augmentin given that she had a prolonged labor course resulting in infection and is now being readmitted for infection. -Patient discussed with labor and delivery charge nurse and given the patient is febrile, will plan for COVID-19 testing. -We will defer Tylenol to avoid masking fevers. Will repeat CBC and BMP in the morning. Monitor for clinical improvement. OBSV E&M: [id number] Observ/hosp same date L3
[2020-02-18 21:57] VITALS: BP 123/72; PULSE 100; PULSE 99; RESP 16; RESP 18; TEMP 36.9; O2SAT 100; O2SAT 98
--- NOTE | 2020-02-18 22:20 | ED.RN ---
THIS RN CALLED REPORT TO OB, SPOKE WITH GINA GONZALES. PT OK TO GO OB.
--- NOTE | 2020-02-18 22:20 | NURSING ---
bedside report received at this time from Kaia GONZALES in ER. pt to come to [facility] shortly. kiln charger aware of this. pt going to room 10 for orders to be started.
[2020-02-18 22:44] VITALS: BMI 34.7
[2020-02-18 22:55] VITALS: BP 118/66; PULSE 97; RESP 16; TEMP 36.8; O2SAT 98
--- NOTE | 2020-02-18 23:14 | NURSING ---
dr rossi contacted to confirm orders she placed upon admission. pt does not need to be wearing SCDs, if ambulatory. dr rossi requesting a urine culture, if ED did not collect one. dr rossi states no IV maintenance fluids to be given d/t pt swelling present. regular diet okay. assessment and vitals WNL when initially admitted to . plan of care is for pt to receive 24 hrs of antibiotics. labs to be collected in AM at 0600. will continue to monitor and update physician as needed.
--- NOTE | 2020-02-18 23:23 | NURSING ---
pt COVID swab collected and to be resulted within a few hours. this was charge authorizer's reasoning for placing pt in this room.
[2020-02-18] MEDS: oxyCODONE 5 MG Tablet PO (23:44)
[2020-02-19] MEDS: 0.9% Saline Lock 10 ML Syringe IV ×6 (00:15→17:09)
[2020-02-19 03:21] VITALS: BP 108/70; PULSE 107; RESP 16; TEMP 36.8; O2SAT 97
[2020-02-19 03:40] LABS: Hematocrit 22.9 % (37-47); Hemoglobin 7.7 g/dL (12.0-15.0); Mean Corp Hgb Conc 33.6 g/dL (32-36); Mean Corpuscular Hgb 29.4 pg (27.0-32.0); Mean Corpuscular Volume 87.4 fL (81-99); Mean Platelet Vol. 10.7 fl (6.2-12.0); POSITIVE COUNT YES; POSITIVE MORPHOLOGY YES; Platelet Count 178 K/mm3 (150-450); RBC Distribution Width CV 13.5 % (11.6-14.6); Red Blood Count 2.62 M/mm3 (4.2-5.4); White Blood Count 3.9 K/mm3 (4.4-11.0)
[2020-02-19 03:43] LABS: Differential Indicated MANUAL DIFF
[2020-02-19 03:59] LABS: Anion Gap 6 (5-15); BUN 11 mg/dL (7-18); BUN/Creat Ratio 13.4 RATIO (10-20); Chloride 110 mmol/L (98-107); Creatinine, Serum 0.82 mg/dL (0.55-1.02); EST Glomerular Filtration Rate 89 mL/min (>60); Est Glom Filt Rate - Afr Amer 108 mL/min (>60); Estimated Creatinine Clearance 97.33 ml/min; Glucose 71 mg/dL (74-106); Potassium 3.7 mmol/L (3.5-5.1); Sodium Level 141 mmol/L (136-145)
[2020-02-19 04:53] LABS: Eosinophil 2 % (0-5); Lymphocyte 25 % (19-41); Metamyelocyte 4 % (0-1); Monocyte 2 % (0-10); Neutrophil-Band 4 % (0-5); Neutrophil-Segmented 67 % (47-70); Total Cells Counted 100 (MANUAL DIFF)
[2020-02-19 04:54] LABS: Absolute Lymphocyte Count 0.96 X10^3/uL (0.83-4.51); Absolute Neutrophil Count 2.7 X10^3/uL (2.0-7.7); Lymphocyte # 0.96 X10^3/ul (4.0); Neutrophil # 2.73 X10^3/uL (2.7-7.7); Platelet Estimate ADEQUATE (ADEQ); Red Cell Morphology NORM C+C NORMAL (NORM C&C)
[2020-02-19] MEDS: oxyCODONE 5 MG Tablet PO ×2 (05:06→17:16)
[2020-02-19 07:16] VITALS: BP 116/64; PULSE 100; RESP 16; TEMP 36.7; O2SAT 97
[2020-02-19] MEDS: Prenatal Vits Tablet 1 TABLET PO (09:20)
[2020-02-19] MEDS: Naproxen 250 MG Tablet 500 MG PO (09:23)
[2020-02-19] MEDS: Senna/Docusate Sodium 1 Tablet PO (09:27)
[2020-02-19] MEDS: Enoxaparin 40 MG/0.4 ML Syringe SC (09:28)
[2020-02-19 10:20] VITALS: BP 117/66; PULSE 102; RESP 16; TEMP 37.2; O2SAT 98
[2020-02-19 12:17] LABS: Pathologist Review Reviewed
--- NOTE | 2020-02-19 14:55 | NURSING ---
student charting reviewed and used for educational and learning purposes.
[2020-02-19 15:13] VITALS: BP 116/69; PULSE 90; RESP 18; TEMP 36.9; O2SAT 98
--- NOTE | 2020-02-19 17:22 | DCINST_ITS ---
Discharge Diet: No Restrictions Discharge Activity: May Not Drive - for 2 weeks or while taking narcotic pain meds., May Shower, May Take a Tub Bath - in 7 days. May resume sexual activity in: 4-6 weeks Lifting Restrictions: 20 pounds Additional Activity Instructions:: Nothing in the vagina for 4-6 weeks. You may return to work/school in 6 weeks. Call your doctor if your incision/area has: Continuous Slow Oozing, Sudden Increased Bleeding, Increased Pain/ Swelling, Increased Redness, Foul Smelling Discharge, Swelling at the incision site Call your doctor if you observe: Fever of 101 or Higher Suture Line Care: Avoid Pulling/Pushing, Avoid Pinching/Bending Additional Instructions: If you experience any of the following, contact your healthcare provider. * Bleeding that soaks a pad every hour for 2 hours * Fever 100.4 or higher * Unrelieved incision or abdominal pain * Swelling, redness, discharge or bleeding from your incision or episiotomy site * Your incision begins to separate * Problems urinating (including inability to urinate or burning while urinating). * Visual changes * Severe headache * Flu-like symptoms * Pain or redness in one of both of your breasts * Pain, warmth, tenderness or swelling in your legs, especially the calf area * Frequent nausea and vomiting * Symptoms of depression or anxiety If you experience any of the following, call 911 or go to the nearest Emergency Room. * Chest pain * Problems breathing * Seizure activity * Partial or complete paralysis of a body part, slurred speech, weakness or drooping of the face, or a sudden inability to walk or hold your balance Allergies/Adverse Reactions: Allergies morphine Allergy (Verified 02/18/20 22:45) Hives Medications to take at Discharge vitamin#30 30 mg iron-10 mg iron-folic acid 1 mg-omg3 capsule 1 cap PO DAILY 06/26/19 Ferrous Sulfate [Iron] 325 mg PO DAILY 02/14/20 Naproxen [Naprosyn] 500 mg PO BID PRN PRN #60 tab 02/18/20 Oxycodone HCl/Acetaminophen [Percocet 5-325] 1 - 2 tab PO Q6H PRN PRN 7 Days #15 tab 02/18/20 Follow-Up: Call to make an appointment with your doctor for an incision check in 1-2 weeks. You will also need a 6 week post- follow up appointment. Test results from this visit will be discussed in further detail at your follow- up appointment, if applicable. Primary Care Physician: NOT,DEFINED [NON-STAFF] -
--- NOTE | 2020-02-19 17:23 | PCM.PN.OB ---
Subjective: Patient doing well without complaints. No further fevers. Feeling well. Tolerating PO. Ambulating and voiding without difficulty. Pain controlled. Denies nausea and vomiting. Denies chest pain, shortness of breath, calf pain/swelling, fevers, chills, lightheadedness. - Physical Exam Vitals/I&O's: Vital Signs Temp Pulse Resp BP Pulse Ox 98.4 F 90 18 116/69 98 02/19/20 15:13 02/19/20 15:13 02/19/20 15:13 02/19/20 15:13 02/19/20 15:13 Oxygen Delivery Method Room Air Weight: 215 lb Body Mass Index (BMI) 34.7 Intake and Output for Last 24 Hours 02/17/20 02/18/20 02/19/20 23:59 23:59 23:59 Intake Total 1257.5 / 1257.5 2418 / 2418 Output Total 2200 / 2200 Balance 1257.5 / 1257.5 218 / 218 General: Alert, Oriented x3, Cooperative, No apparent distress, Well developed, Well nourished HEENT: Atraumatic, PERRLA, EOMI, Normocephalic Oral: Moist Mucosa Neck: Supple, No JVD Lungs: Normal air movement Cardiovascular: Regular rate Abdomen: Soft, Non Tender, Non-Distended, Passing Flatus, - - incision c/d/i with dressing in place Extremities: No Calf Tenderness, Edema Neurological: Cranial nerves II-XII grossly intact, Neuro grossly intact Psych/Mental Status: Appropriate, Alert and oriented to time, place, person, mood and affect Laboratory Results 02/18/20 17:30: WBC 4.4, RBC 2.78 L, Hgb 8.1 L, Hct 24.4 L, MCV 87.8, MCH 29.1, MCHC 33.2, RDW Std Deviation 42.4, RDW Coeff of Addy 13.2, Plt Count 196, MPV 11.6, Immature Gran % (Auto) 4.500 H, Neut % (Auto) 83.1 H, Lymph % (Auto) 6.8 L, [place] % (Auto) 5.2, Eos % (Auto) 0.2, Baso % (Auto) 0.2, Absolute Neuts (auto) 3.7, Absolute Lymphs (auto) 0.30 L, Nucleated RBC % 0, Differential Comment SEE COMMENT, Platelet Estimate ADEQUATE, RBC Morphology N CHROM, Anisocytosis RARE 02/18/20 17:30: Sodium 138, Potassium 3.5, Chloride 106, Carbon Dioxide 24.0, Anion Gap 8, BUN 12, Creatinine 0.92, Estim Creat Clear Calc 86.75, Est GFR (MDRD) Af Amer 95, Est GFR (MDRD) Non-Af 79, BUN/Creatinine Ratio 13.1, Glucose 65 L, Calcium 8.1 L, Total Bilirubin 0.60, AST 45 H, ALT 29, Alkaline Phosphatase 210 H, Total Protein 5.8 L, Albumin 1.8 L, Globulin 4.0, Albumin/Globulin Ratio 0.4 L 02/18/20 17:30: Urine Color Red, Urine Clarity Cloudy, Urine pH 6.0, Ur Specific [place] 1.015, Urine Protein 100 H, Urine Glucose (UA) Normal, Urine Ketones 5 H, Urine Occult Blood 250 H, Urine Nitrite Negative, Urine Bilirubin Negative, Urine Urobilinogen 4 H, Ur Leukocyte Esterase 500 H, Urine RBC > 100 SEEN, Urine WBC >100 SEEN, Ur Squamous Epith Cells 5-10 SEEN, Amorphous Sediment 1+ URATE, Urine Bacteria RARE, Urine Mucus 0 SEEN 02/18/20 22:53: COVID-19 ([place]) Not Detected 02/19/20 03:26: WBC 3.9 L, RBC 2.62 L, Hgb 7.7 L, Hct 22.9 L, MCV 87.4, MCH 29.4, MCHC 33.6, RDW Std Deviation 43.0, RDW Coeff of Addy 13.5, Plt Count 178, MPV 10.7, Neut % (Auto) Not Reportable, Absolute Neuts (auto) 2.7, Absolute Lymphs (auto) 0.96, Total Counted 100, Neutrophils % (Manual) 67, Band Neutrophils % 4, Lymphocytes % (Manual) 25, Monocytes % (Manual) 2, Eosinophils % (Manual) 2, Metamyelocytes % 4 H, Diff Path Review Reviewed, Platelet Estimate ADEQUATE, RBC Morphology NORM C+C 02/19/20 03:26: Sodium 141, Potassium 3.7, Chloride 110 H, Carbon Dioxide 25.0, Anion Gap 6, BUN 11, Creatinine 0.82, Estim Creat Clear Calc 97.33, Est GFR (MDRD) Af Amer 108, Est GFR (MDRD) Non-Af 89, BUN/Creatinine Ratio 13.4, Glucose 71 L, Calcium 8.0 L Current Medications Enoxaparin Sodium (Lovenox) 40 mg SC DAILY [facility] Last Admin: 02/19/20 09:28 Dose: 40 mg Documented by: Ampicillin Sodium 2 gm/ Sodium (Chloride) 100 mls @ 200 mls/hr IV Q6H [facility] Last Admin: 02/19/20 17:09 Dose: 200 mls/hr Documented by: Clindamycin Phosphate 900 mg/ (Dextrose) 106 mls @ 150 mls/hr IV Q8H [facility] Last Infusion: 02/19/20 15:41 Dose: Infused Documented by: Naproxen (Naprosyn) 500 mg PO BID PRN PRN PRN Reason: Pain Score 1-10/10 Last Admin: 02/19/20 09:23 Dose: 500 mg Documented by: Ondansetron HCl (Zofran) 4 mg IV Q8H PRN PRN PRN Reason: NAUSEA/VOMITING Oxycodone HCl (Oxyir) 5 mg PO Q4H PRN PRN PRN Reason: Pain Score 4-10/10 Last Admin: 02/19/20 17:16 Dose: 5 mg Documented by: Multivit/Folic Acid/Iron (Prenatabs Fa) 1 tablet PO DAILY [facility] Last Admin: 02/19/20 09:20 Dose: 1 tablet Documented by: Prochlorperazine Edisylate (Compazine Iv) 5 mg IV Q4H PRN PRN PRN Reason: Breakthrough nausea/vomiting Senna/Docusate Sodium (Senokot-S, Jennifer-Colace) 1 tablet PO BID [facility] Last Admin: 02/19/20 09:27 Dose: 1 tablet Documented by: Sodium Chloride () 10 ml IV PRN PRN PRN Reason: SALINE FLUSH Last Admin: 02/19/20 17:09 Dose: 10 ml Documented by: Medical Necessity - Tobacco Use Smoking Status: Never smoker Tobacco Use: Non-smoker Assessment/Plan All Active Problems (Last Reviewed 02/18/20 @ 21:[address] Janell Acevedo MD) Encounter for induction of labor (Acute) Family history of multiple sclerosis (Acute) Family history of genetic disease (Acute) Supervision of normal (Acute) (Acute) Ovarian cyst (Resolved) Threatened (Resolved) Uterine size-date discrepancy, third trimester (Resolved) 25yo POD#3 s/p PLTCS admitted for endometritis 1. endometritis - Afebrile since admission, vitals stable - Patient to complete 24h amp/gent/clinda at ~6pm - WBC trended down this am - Patient feeling well. Adamantly requesting discharge to home this evening. Discussed risks and benefits of discharge today vs. observation overnight. Aware of reasons to call. Return precautions reviewed. Multi Select Codes - Visit Charges Observation E&M Codin Observation care discharge
== END 2020-02-19 18:00 | disposition home or self-care (01) | DRG 776 ==
LOC: ED 17:21 → WP 21:47
PROVIDERS: Admitting Provider Obstetrics & Gynecology; Emergency Provider Emergency Medicine; Visit Provider Obstetrics & Gynecology
DX: O86.12 Endometritis following delivery (principal); Z82.0 Family history of epilepsy and other diseases of the nervous system; Z90.49 Acquired absence of other specified parts of digestive tract
CPT/HCPCS: 71046; 76830; 80048; 80053; 81001; 85025; 87086; 87635; 99284; J7030; A4216; U0003

== ENCOUNTER 2020-03-03 15:12 | Emergency (ER) | payer BC, SELFPAY ==
[2020-03-02 13:31] VITALS: BMI 34.7
[2020-03-03 15:13] VITALS: BP 120/69; PULSE 94; RESP 18; TEMP 36.3; O2SAT 99; BMI 30.7
[2020-03-03 15:47] VITALS: O2SAT 98
--- NOTE | 2020-03-03 15:47 | CT_ITS ---
STUDY: CTA CHEST REASON FOR EXAM: Female, 25 years old. SOB, 02/15 RADIATION DOSAGE (If Supplied By Facility): CTDIvol = ( 8.93 ) mGy, DLP = ( 407.21 ) mGycm TECHNIQUE: The examination was performed with the intravenous administration of 100 cc of ISOVUE-370.. Post-processing of the angiographic images was performed, with multiplanar reformation and 3D reconstruction. Individualized dose optimization techniques were used for this CT. COMPARISON: None. FINDINGS: Normal enhancement of the main pulmonary artery and right and left pulmonary arteries. Normal enhancement of the bilateral peripheral pulmonary arteries. There is no demonstrated pulmonary embolism. Normal thoracic aorta and visualized great vessels. There is no demonstrated aortic dissection. Normal heart and pericardium. Normal mediastinum. Normal hilar regions. Normal visualized trachea and bronchi. The lungs are well expanded. Normal pulmonary parenchyma. Normal pleura. Normal chest wall structures. There is partial fusion with rudimentary disc of 2 adjacent upper thoracic vertebrae. Normal visualized upper abdomen. CT/CTA Chest W/WO Contrast IMPRESSION: Normal CTA chest examination, without a demonstrated pulmonary embolism or arterial dissection. Electronically Signed: Mahin Florentino MD at 17:45 EDT , Service support ,
--- NOTE | 2020-03-03 15:48 | ED.DCSUM_ITS ---
History of Present Illness Chief Complaint: Shortness of Breath Informant: Patient Onset: Today Narrative: 25-year-old female with no significant past medical history status post C- section 2 weeks ago presents with concern for chest heaviness. States it began approximately 8 hours ago. States it is intermittent in nature. [place] like she cannot catch her breath. States that she is not actively having this feeling. Denies any nausea or vomiting. No history of DVT or pulmonary embolism. Denies any fever, chills, cough. No sick contacts. Past Medical History - Allergies and Home Meds Allergies/Adverse Reactions: Allergies morphine Allergy (Verified 03/03/20 15:13) Hives Primary Care Physician: Care Physician,No Primary [Primary Care Provider] - Past Medical History: None Surgical History: - Lives: With Family Smoking Status: Never smoker Alcohol: None Drugs: None Review of Systems General: Denies: Chills, Fever, Sweats Eyes: Denies: Visual changes - bilaterally, Diplopia ENT: Denies: Rhinorrhea, Sore throat Cardiovascular: Reports: Chest pain. Denies: Palpitations Respiratory: Reports: Dyspnea. Denies: Cough, Dyspnea on exertion Gastrointestinal: Denies: Abdominal pain, Nausea, Vomiting, Diarrhea, Melena, Hematochezia Genitourinary: Denies: Dysuria, Hematuria, Frequency Musculoskeletal: Denies: Back pain, Extremity Pain Skin: Denies: Rash, Wounds Neurological: Denies: Headache, Weakness, Numbness Physical Exam Vital Signs/Narrative: Vital Signs Temp Pulse Resp BP Pulse Ox 03/03/20 15:13 97.3 F L 94 18 120/69 99 Inital Vital Signs reviewed: Yes General: Well nourished, Well developed, No Acute Distress Head: Normocephalic, Atraumatic Eyes: Perrl, EOMI ENT: Moist mucous membranes, No rhinorrhea Neck: Supple, Nontender Cardiovascular: Regular rate, Regular rhythm, No murmurs Respiratory: No distress, CTA bilaterally, Chest nontender Abdomen: Soft, Nontender, Nondistended, Normal bowel sounds Back: Nontender, Normal Inspection Extremities: Nontender, No edema Skin: Normal color, No rash Neurological: Alert, Oriented x3, Cranial nerves II-XII grossly intact, Normal Strength, Normal Sensation Psychological: Normal affect, Normal Mood Diagnostic/Tx/Re-eval - Rhythm Strip Rhythm Strip: Sinus Rhythm Rate: 81 Ectopy: None - EKG Initial EKG Interpretation: Sinus Rhythm - Normal sinus rhythm at 81 bpm. [place] interval of 148 ms. QTC of [address] ms. No evidence of ST elevation or depression at this time. - Medical Decision Making Appears well nontoxic. EKG nonischemic. Lab work shows a chronic anemia imp roved from baseline. CTA negative. Patient blood pressure normal here in the emergency department. Patient asked to follow-up with primary care. Discharged home in stable condition. Impression: 1. Atypical chest pain 2. Dyspnea ED Disposition - Plan for ED Patient: Disposition: Home or Assisted Living Instructions: ED Chest Pain Atypical Unkn Cause Referrals: Yenny Yeung MD [STAFF PHYSICIAN] - 2 Days
--- NOTE | 2020-03-03 15:56 | NURSING ---
NO OLD EKGS
[2020-03-03 16:15] VITALS: BP 118/72; PULSE 75; RESP 18; TEMP 36.3; O2SAT 100
[2020-03-03 16:36] LABS: Absolute Lymphocyte Count 1.47 X10^3/uL (0.83-4.51); Basophil# 0.07 X10^3/uL; Basophil% 0.8 % (0-1); Eosinophil# 0.12 X10^3/uL; Eosinophils% 1.3 % (0-5); Hematocrit 35.4 % (37-47); Hemoglobin 11.1 g/dL (12.0-15.0); Lymphocyte # 1.47 X10^3/ul (4.0); Lymphocyte % 15.8 % (19-41); Mean Corp Hgb Conc 31.4 g/dL (32-36); Mean Corpuscular Hgb 27.8 pg (27.0-32.0); Mean Corpuscular Volume 88.7 fL (81-99); Mean Platelet Vol. 10.2 fl (6.2-12.0); Monocyte# 0.53 X10^3/uL; Monocyte% 5.7 % (0-10); NRBC Flagged by Analyzer 0 % (0-5); Neutrophil # 6.99 X10^3/uL (2.7-7.7); Neutrophil % 75.2 % (47-70); Platelet Count 513 K/mm3 (150-450); RBC Distribution Width CV 13.2 % (11.6-14.6); Red Blood Count 3.99 M/mm3 (4.2-5.4); White Blood Count 9.3 K/mm3 (4.4-11.0)
[2020-03-03 16:54] LABS: Anion Gap 6 (5-15); BUN 19 mg/dL (7-18); BUN/Creat Ratio 20.7 RATIO (10-20); Calcium,Total 9.2 mg/dL (8.5-10.1); Chloride 103 mmol/L (98-107); Creatinine, Serum 0.92 mg/dL (0.55-1.02); EST Glomerular Filtration Rate 79 mL/min (>60); Est Glom Filt Rate - Afr Amer 95 mL/min (>60); Estimated Creatinine Clearance 86.75 ml/min; Glucose 91 mg/dL (74-106); Potassium 3.9 mmol/L (3.5-5.1); Sodium Level 137 mmol/L (136-145)
[2020-03-03 18:56] VITALS: BP 116/82; PULSE 83; RESP 16
== END 2020-03-03 18:58 | disposition home or self-care (01) ==
PROVIDERS: Emergency Provider Emergency Medicine
DX: R07.89 Other chest pain (principal); R06.00 Dyspnea, unspecified
CPT/HCPCS: 71275; 80048; 84484; 85025; 93005; 99284; Q9967